=== PATIENT | female | born 1965 | race Caucasian/White ===

== ENCOUNTER → 2018-11-27 | Outpatient (CLI) | payer OTHER ==
--- NOTE | 2018-11-27 13:42 | Diagnostic Imaging Report ---
INDICATION: LOCALIZED SWELLING OF LOWER LEGS; BILATERAL LEG PAIN; CHECKING FOR LVH COMPARISON: None. FINDINGS: Frontal and lateral views of the chest demonstrate normal heart size and pulmonary vascularity. The lungs are clear. There are no signs of infiltrate, pleural effusions or pneumothoraces. The visualized osseous structures show no acute abnormalities. IMPRESSION: 1. No acute process. No signs of infiltrates, effusions or pneumothoraces. Dictated by: Dictated on workstation # [id number]
== END ==
LOC: RAD FS 12:01
PROVIDERS: ATTEND Nurse Practitioner Family
DX: R22.43 Localized swelling, mass and lump, lower limb, bilateral (principal)
CPT/HCPCS: 71046

== ENCOUNTER → 2019-02-25 | Outpatient (CLI) | payer OTHER ==
[~2019-02-25] VITALS: Ht 165.1 cm; Wt 68.2 kg
[~2019-02-25] MED LIST: LIDOCAINE 1% INJ 20 ML 20 ML VIAL INJ ONE
--- NOTE | 2019-02-25 10:07 | Diagnostic Imaging Report ---
INDICATION: Left thyroid nodules. Patient presents for ultrasound-guided fine-needle aspiration. Patient was brought to the procedure room and placed on the table in the supine position. Ultrasound imaging of the left neck was performed to evaluate appropriate entry site. Left neck was then prepped and draped in usual sterile fashion. Small amount of 1% lidocaine was utilized for local anesthesia. A total of 4 passes were made into the peripherally calcified hypoechoic nodule in upper pole left lobe of the thyroid utilizing 25-gauge needles and fine-needle aspiration technique. Hemostasis was obtained using manual compression. Patient tolerated procedure well and left department in stable condition. IMPRESSION: Successful ultrasound-guided fine-needle aspiration of the hypoechoic partially calcified nodule in the left lobe of the thyroid, as described. Pathology results are currently pending. Dictated by: Dictated on workstation # [id number]
== END ==
LOC: RAD 08:02
PROVIDERS: ATTEND Nurse Practitioner Family
DX: E04.1 Nontoxic single thyroid nodule (principal)

== ENCOUNTER 2021-02-12 17:59 | Observation (INO) | payer OTHER ==
[~2021-02-12] VITALS: Ht 165 cm; Wt 59.7 kg
[2021-02-12 18:51] LABS: HEMATOCRIT 30 % (35-52); HEMOGLOBIN 9.7 g/dL (11.5-16.0); MEAN CORPUSCULAR HEMOGLOBIN 28 pg (25-34); MEAN CORPUSCULAR HGB CONC 33 g/dL (32-36); MEAN CORPUSCULAR VOLUME 86 fL (80-99); WHITE BLOOD COUNT 4.1 10^3/uL (4.3-11.0)
[2021-02-12 18:52] LABS: BASOPHILS % (AUTO) 0 % (0-10); EOSINOPHILS % (AUTO) 1 % (0-10); LYMPHOCYTES # (AUTO) 0.3 X 10^3 (1.0-4.0); LYMPHOCYTES % (AUTO) 7 % (12-44); MEAN PLATELET VOLUME 10.3 fL (9.0-12.2); MONOCYTES # (AUTO) 0.3 X 10^3 (0.0-1.0); MONOCYTES % (AUTO) 6 % (0-12); NEUTROPHILS # (AUTO) 3.5 X 10^3 (1.8-7.8); NEUTROPHILS % (AUTO) 85 % (42-75); PLATELET COUNT 197 10^3/uL (130-400)
[2021-02-12 18:59] LABS: CREATININE SERUM 0.81 MG/DL (0.60-1.30); POTASSIUM 4.7 MMOL/L (3.6-5.0)
[2021-02-12 19:01] LABS: ALBUMIN 3.3 GM/DL (3.2-4.5); BILIRUBIN,TOTAL 0.4 MG/DL (0.1-1.0); TOTAL PROTEIN 6.7 GM/DL (6.4-8.2)
[2021-02-12 19:06] LABS: BILIRUBIN,URINE NEGATIVE (NEGATIVE); CLARITY,URINE SL CLOUDY; COLOR,URINE YELLOW; GLUCOSE, URINE (UA) 3+ (NEGATIVE); KETONES,URINE NEGATIVE (NEGATIVE); LEUKOCYTE ESTERASE ,URINE NEGATIVE (NEGATIVE); NITRITE,URINE POSITIVE (NEGATIVE); PROTEIN,URINE NEGATIVE (NEGATIVE)
[2021-02-12] MEDS ORDERED: inSUlin (REGULAR) HUMAN 1 UNIT/0.01 ML (CHARGE PER UNIT) SC STA (19:09)
[2021-02-12] MEDS ORDERED: NS IV 1000 ML 1,000 ML IV STA (19:09)
[2021-02-12 19:11] LABS: BACTERIA,URINE LARGE /HPF; SQUAMOUS EPITHELIAL CELL,UR 0-2 /HPF
--- NOTE | 2021-02-12 19:11 | ED General ---
General Chief Complaint: General Problems/Pain Stated Complaint: BLOOD SUGAR HIGH,WEAKNESS Nursing Triage Note: Patient has presented to ER with cc of 3 weeks of ecoli in her urine. She complains of weakness, nausea, decreased appetite, she has had some vomiting, weight loss over the last 3 weeks. Patient was seen in the clinic today and sent to ER for evaluation. Source of Information: Patient, Family History of Present Illness Date Seen by Provider: Feb 12, 2021 Time Seen by Provider: 18:03 Initial Comments 55-year-old female presenting from the clinic where she was seen for over 3 weeks of urinary tract infection. She complains of increased weakness with nausea, vomiting, decreased appetite, continued weight loss over the last several months. She was seen in the clinic today in the center to the emergency department when it was found that she had an elevated glucose over 400. She has no fever but reports feeling chills. She has been on at least 3 different antibiotics in the last few weeks for a urinary tract infection. These include Cipro, cephalexin and then most recently Macrobid for the last week. She has had a increase in her dry mouth and thirst with the elevated sugar. She denies having any diarrhea. Timing/Duration: Getting Worse (Feels like she has been worsening over the last several weeks) Severity: Moderate Associated Systoms: No Chest Pain, No Cough, No Diaphoresis; Fever/Chills (No fever but subjective chills); No Headaches; Loss of Appetite, Malaise, Nausea/Vomiting; No Rash, No Seizure, No Shortness of Air, No Syncope; Weakness (Generalized) Allergies and Home Medications Allergies Coded Allergies: No Known Drug Allergies (Unverified , 02/25/19) Patient Home Medication List Home Medication List Reviewed: Yes Review of Systems Review of Systems Constitutional: chills, dizziness (With standing at times); No fever EENTM: no symptoms reported Respiratory: no symptoms reported Cardiovascular: no symptoms reported Gastrointestinal: No diarrhea; nausea, vomiting Genitourinary: dysuria, frequency Musculoskeletal: back pain (Chronic low back pain) Skin: No rash Psychiatric/Neurological: Denies Numbness, Denies Paresthesia; Weakness (Generalized) Past Btturyf-Xvggdu-Qwgixi Hx Patient Social History Tobacco Use?: No Use of E-Cig and/or Vaping dev: No Substance use?: No Alcohol Use?: No Pt feels they are or have been: No Past Medical History Surgery/Hospitalization HX: Diabetes, recurrent E. coli urine infections Physical Exam Vital Signs Vital Signs - First Documented 02/12/21 18:29 Temp 36.9 Pulse 123 Resp 16 B/P (MAP) 136/73 (94) Pulse Ox 98 O2 Delivery Room Air Capillary Refill : Height, Weight, BMI Height: '" Weight: lbs. oz. kg; 23.00 BMI Method: General Appearance: Chronically ill, Mild Distress HEENT: No Moist Mucous Membranes (Slightly dry mucous membranes) Neck: Full Range of Motion, Normal Inspection, Non Tender, Supple Respiratory: Chest Non Tender, Lungs Clear, Normal Breath Sounds, No Accessory Muscle Use, No Respiratory Distress Cardiovascular: Normal Peripheral Pulses, Tachycardia Gastrointestinal: Normal Bowel Sounds, No Pulsatile Mass, Non Tender, Soft Rectal: Deferred Back: No CVA Tenderness Extremity: Normal Capillary Refill, Normal Inspection, No Pedal Edema Neurologic/Psychiatric: Alert, Oriented x3, cosmetics supervisor II-XII Norm as Tested Skin: Normal Color, Warm/Dry Focused Exam Sepsis Stage: Sepsis Possible Source: Genitouriary Lactate Level 02/12/21 18:21: Lactic Acid Level 2.21*H 02/12/21 20:30: Lactic Acid Level 1.92 Time of Focused Exam: 20:48 Respiratory: Chest Non Tender, Lungs Clear, Normal Breath Sounds, No Accessory Muscle Use, No Respiratory Distress Cardiovascular: Normal Peripheral Pulses, Tachycardia Capillary Refill: Less Than 3 Seconds Peripheral Pulses: 2+ Radial Pulses (R), 2+ Radial Pulses (L) Skin: normal color, warm/dry Lactic Acid Level Laboratory Tests Test 02/12/21 18:21 02/12/21 20:30 Lactic Acid Level 2.21 MMOL/L (0.50-2.00) *H 1.92 MMOL/L (0.50-2.00) Within 3hrs of presentation: Admin fluids, Admin ABX, Focus exam, Lactate level Progress/Results/Core Measures Suspected Sepsis SIRS Temperature: Pulse: 123 Respiratory Rate: 16 Laboratory Tests 02/12/21 18:21: White Blood Count 4.1L Blood Pressure 136 /73 Mean: 94 02/12/21 18:21: Lactic Acid Level 2.21*H 02/12/21 20:30: Lactic Acid Level 1.92 Laboratory Tests 12/13/21 18:21: Creatinine 0.81, Platelet Count 197, Total Bilirubin 0.4 Results/Orders Lab Results Laboratory Tests Test 02/12/21 18:21 02/12/21 18:45 02/12/21 18:50 02/12/21 20:30 Range/Units White Blood Count 4.1 L 4.3-11.0 10^3/uL Red Blood Count 3.45 L 3.80-5.11 10^6/uL Hemoglobin 9.7 L 11.5-16.0 g/dL Hematocrit 30 L 35-52 % Mean Corpuscular Volume 86 80-99 fL Mean Corpuscular Hemoglobin 28 25-34 pg Mean Corpuscular Hemoglobin Concent 33 32-36 g/dL Red Cell Distribution Width 15.7 H 10.0-14.5 % Platelet Count 197 130-400 10^3/uL Mean Platelet Volume 10.3 9.0-12.2 fL Immature Granulocyte % (Auto) 1 % Neutrophils (%) (Auto) 85 H 42-75 % Lymphocytes (%) (Auto) 7 L 12-44 % Monocytes (%) (Auto) 6 0-12 % Eosinophils (%) (Auto) 1 0-10 % Basophils (%) (Auto) 0 0-10 % Neutrophils # (Auto) 3.5 1.8-7.8 X 10^3 Lymphocytes # (Auto) 0.3 L 1.0-4.0 X 10^3 Monocytes # (Auto) 0.3 0.0-1.0 X 10^3 Eosinophils # (Auto) 0.0 0.0-0.3 10^3/uL Basophils # (Auto) 0.0 0.0-0.1 10^3/uL Immature Granulocyte # (Auto) 0.0 0.0-0.1 10^3/uL Neutrophils % (Manual) 78 % Lymphocytes % (Manual) 6 % Monocytes % (Manual) 11 % Eosinophils % (Manual) 0 % Basophils % (Manual) 0 % Band Neutrophils 5 % Anisocytosis SLIGHT Elliptocytes SLIGHT Sodium Level 127 L 135-145 MMOL/L Potassium Level 4.7 3.6-5.0 MMOL/L Chloride Level 91 L 98-107 MMOL/L Carbon Dioxide Level 24 21-32 MMOL/L Anion Gap 12 5-14 MMOL/L Blood Urea Nitrogen 14 7-18 MG/DL Creatinine 0.81 0.60-1.30 MG/DL Estimat Glomerular Filtration Rate 73 BUN/Creatinine Ratio 17 Glucose Level 475 *H 70-105 MG/DL Lactic Acid Level 2.21 *H 1.92 0.50-2.00 MMOL/L Calcium Level 9.0 8.5-10.1 MG/DL Corrected Calcium 9.6 8.5-10.1 MG/DL Total Bilirubin 0.4 0.1-1.0 MG/DL Aspartate Amino Transf (AST/SGOT) 13 5-34 U/L Alanine Aminotransferase (ALT/SGPT) 6 0-55 U/L Alkaline Phosphatase 66 40-136 U/L Total Protein 6.7 6.4-8.2 GM/DL Albumin 3.3 3.2-4.5 GM/DL Lipase 36 8-78 U/L Beta-Hydroxybutyrate (Chem panel) 0.18 0.00-0.27 MMOL/L Glucometer 422 *H 70-110 MG/DL Urine Color YELLOW Urine Clarity SL CLOUDY Urine pH 6.0 5-9 Urine Specific [place] <=1.005 1.016-1.022 Urine Protein NEGATIVE NEGATIVE Urine Glucose (UA) 3+ H NEGATIVE Urine Ketones NEGATIVE NEGATIVE Urine Nitrite POSITIVE H NEGATIVE Urine Bilirubin NEGATIVE NEGATIVE Urine Urobilinogen 0.2 < = 1.0 MG/DL Urine Leukocyte Esterase NEGATIVE NEGATIVE Urine RBC (Auto) NEGATIVE NEGATIVE Urine RBC NONE /HPF Urine WBC 2-5 /HPF Urine Squamous Epithelial Cells 0-2 /HPF Urine Crystals NONE /LPF Urine Bacteria LARGE H /HPF Urine Casts NONE /LPF Urine Mucus NEGATIVE /LPF Urine Culture Indicated YES Test 02/12/21 20:46 02/12/21 22:45 Range/Units Glucometer 315 H 177 H 70-110 MG/DL My Orders Orders - REGINA VALDEZ MD Comprehensive Metabolic Panel (02/12/21 18:34) Lipase (02/12/21 18:34) Ua Culture If Indicated (02/12/21 18:34) Ed Iv/Invasive Line Start (02/12/21 18:34) Cbc With Automated Diff (02/12/21 18:34) Beta Hydroxybutyrate (02/12/21 18:34) Accucheck Stat ONCE (02/12/21 18:34) Manual Differential (02/12/21 18:21) Ns Iv 1000 Ml (Sodium Chloride 0.9%) (02/12/21 19:09) Insulin (Regular) Human (Novolin R (Per (02/12/21 19:09) Urine Culture (02/12/21 18:50) Lactic Acid Analyzer (02/12/21 19:31) Ceftriaxone (Rocephin) (02/12/21 21:45) Ns Iv 1000 Ml (Sodium Chloride 0.9%) (02/12/21 21:45) Medications Given in ED Current Medications Medications Dose Ordered Sig/Froilan Route Start Time Stop Time Status Last Admin Dose Admin Ceftriaxone Sodium 1000 mg/ Sterile Water 10 ml @ 60 mls/hr ONCE ONCE IV 02/12/21 21:45 02/12/21 21:54 DC 02/12/21 22:29 60 MLS/HR Vital Signs/I&O 02/12/21 18:29 Temp 36.9 Pulse 123 Resp 16 B/P (MAP) 136/73 (94) Pulse Ox 98 O2 Delivery Room Air Capillary Refill : Blood Pressure Mean: 94 Point of Care Testing Finger Stick Blood Glucose: 422 Blood Glucose Action Taken: RN notified Progress Note #1: Progress Note Accu-Chek showed her sugar was 422. She had tachycardia so obtain labs includ ing lactic acid and basic blood work. Urinalysis was also obtained. Give IV fluids for hydration. Differential diagnosis includes DKA, sepsis, pyelonephritis, Progress Note #2: Progress Note Her labs showed the glucose was 475. Her urine still showed signs of UTI with nitrites and bacteria. She had normal white blood cell count of 4.1 but she had elevated lactic acid of 2.2. Continue with IV fluids and recheck the glucose after she was given 10 units of regular insulin Progress Note #3: Progress Note The sugar did come down to 315 with treatment. Her lactic acid also improved down to 1.92 with fluids. Since she continues to show signs of infection in her urine despite several oral antibiotics will discuss the on-call provider about admission for IV antibiotics. Her beta hydroxybutyrate was negative for DKA findings. Discussed with Dr. Puri for the [facility] clinic about admission. She agreed to have an observation stay with the patient having recurrent urinary tract infection and having elevated lactic acid. Especially since she was having nausea with vomiting and continued elevated heart rate will continue with IV fluid hydration in addition to the antibiotics. We will start with Rocephin based off of the sepsis order set. Departure Communication (Admissions) Time/Spoke to Admitting Phy: 21:07 d/w Dr. Puri for [facility] and she accepted pt for observation admit to be treated for continued UTI with sepsis and elevated heart rate. Try IV Rocephin and IVF for hydration. Impression Primary Impression: Cystitis without hematuria Additional Impressions: Sepsis Qualified Codes: A41.51 - Sepsis due to Escherichia coli [e. coli] Tachycardia Hyperglycemia due to diabetes mellitus Disposition: 30 STILL A PATIENT Condition: Stable Admissions Decision to Admit Reason: Admit from ER (General) Decision to Admit/Date: Feb 12, 2021 Time/Decision to Admit Time: 21:07 Departure-Patient Inst. Referrals: ALEC MITCHELL APRN (PCP/Family) Primary Care Physician REGINA VALDEZ MD Feb 12, 2021 19:11
[2021-02-12 19:44] LABS: ANISOCYTOSIS SLIGHT; BAND NEUTROPHILS 5 %; BASOPHILS % (MANUAL) 0 %; ELLIPT/OVALOCYTES SLIGHT; EOSINOPHILS % (MANUAL) 0 %; LYMPHOCYTES % (MANUAL) 6 %; MONOCYTES % (MANUAL) 11 %; NEUTROPHILS % (MANUAL) 78 %
[2021-02-12] MEDS ORDERED: NS IV 1000 ML 1,000 ML IV SCH (21:45)
[2021-02-12] MEDS ORDERED: cefTRIAXone 1,000 MG in WATER (STERILE) FOR INJECTION 10 ML IV ONE (21:45)
[2021-02-13 01:56] VITALS: BP 128/63
[2021-02-13] MEDS ORDERED: ONDANSETRON 4 MG/2 ML (SDV) Z0FRAN IV PRN (02:30)
[2021-02-13] MEDS: LACTATED RINGERS 1,000 ML IV SCH ×4 (04:26→22:15)
[2021-02-13] MEDS: inSUlin ASPART (NovoLOG) 1 UNIT/0.01 ML (CHARGE PER UNIT) SC SCH ×4 (05:15→20:17)
[2021-02-13 05:31] VITALS: BP 134/69
[2021-02-13 06:21] LABS: BASOPHILS % (AUTO) 0 % (0-10); EOSINOPHILS % (AUTO) 0 % (0-10); HEMATOCRIT 28 % (35-52); HEMOGLOBIN 8.9 g/dL (11.5-16.0); LYMPHOCYTES # (AUTO) 0.3 10^3/uL (1.0-4.0); LYMPHOCYTES % (AUTO) 11 % (12-44); MEAN CORPUSCULAR HEMOGLOBIN 28 pg (25-34); MEAN CORPUSCULAR HGB CONC 32 g/dL (32-36); MEAN CORPUSCULAR VOLUME 87 fL (80-99); MEAN PLATELET VOLUME 10.3 fL (9.0-12.2); MONOCYTES # (AUTO) 0.1 10^3/uL (0.0-1.0); MONOCYTES % (AUTO) 5 % (0-12); NEUTROPHILS # (AUTO) 2.6 10^3/uL (1.8-7.8); NEUTROPHILS % (AUTO) 84 % (42-75); PLATELET COUNT 168 10^3/uL (130-400); WHITE BLOOD COUNT 3.1 10^3/uL (4.3-11.0)
[2021-02-13 06:35] LABS: CALCIUM 8.4 MG/DL (8.5-10.1)
[2021-02-13 06:39] LABS: CREATININE SERUM 0.81 MG/DL (0.60-1.30)
[2021-02-13 08:06] VITALS: BP 130/67
[2021-02-13] MEDS ORDERED: METF-865 PO (08:41)
[2021-02-13] MEDS ORDERED: INSU200I4 SC (08:41)
[2021-02-13] MEDS ORDERED: OMEP20CA18 PO (08:41)
[2021-02-13] MEDS ORDERED: LEVO100T PO (08:41)
[2021-02-13] MEDS ORDERED: FOLI1TAB33 PO (08:41)
[2021-02-13] MEDS ORDERED: METH2.5T PO (08:41)
[2021-02-13] MEDS ORDERED: SEMA0.25 IJ (08:41)
[2021-02-13] MEDS ORDERED: ANTI1CAP5 PO (08:41)
[2021-02-13] MEDS ORDERED: FOLI1TAB6 PO (08:41)
[2021-02-13] MEDS ORDERED: NON-FORMULARY MEDICATION 1 EA EA (Semaglutide (Ozempic) 0.5 MG) IJ SCH (11:00)
[2021-02-13 11:12] VITALS: BP 124/70
[2021-02-13] MEDS ORDERED: PANTOPRAZOLE 20 MG TABLET (PROTONIX) PO PRN (11:30)
--- NOTE | 2021-02-13 11:42 | History & Physical ---
HPI History of Present Illness: 55 yo female sent to ER from clinic due to nausea/vomiting and high blood sugar. She had been undergoing treatment for a UTI since the end of January. She gets very fatigue when she gets a UTI, went in to urgent care around and she got an antibiotic (maybe Keflex) which didn't work at all and she kept ge tting worse. Friday she got a call from the pharmacy that she had a prescription, and she was surprised because she hadn't heard from the office. She went to the pharmacy and got it (maybe cipro), but didn't hear from clinic until Friday. She did feel a little better, but then was told it was resistant and given another. She most recently finished a course of macrobid, but has not been able to get her strength up and has continued to have poor intake and nausea. Thinks she may have yeast infection now. Date seen by provider: Feb 13, 2021 Time Seen by Provider: 11:40 Attending Physician Griselda Puri MD PCP Ursula Perkins Aprn Consult Date of Admission Feb 13, 2021 at 01:50 Home Medications Home Medications Reviewed patient Home Medication Reconciliation performed by pharmacy medication reconciliations medtronics technician and/or nursing. Patients Allergies have been reviewed. Allergies Coded Allergies: amoxicillin (Verified Allergy, Unknown, Rash, 02/13/21) EGU-Zidspv-Gxqlno Hx Patient Social History Smoking Status: Never a Smoker 2nd Hand Smoke Exposure: No Alcohol Use?: No Have you traveled recently?: No Immunizations Up To Date Influenza Vaccine Up-to-Date: No; Not Current First/Initial COVID19 Vaccinat: July 2020 Second COVID19 Vaccination Ziyad: August 2020 COVID19 Vaccine Terry Cloth Cutter Hand: Moderna Past Medical History PMHx: Diabetes Rheumatoid arthritis Hypothyroidism SurgHx: Partial thyroidectomy- benign Hysterectomy Cholecystectomy Tubal ligation Family Medical History Significant Family History: Cancer Review of Systems ([facility]) Constitutional: fever EENTM: throat pain; No nose congestion Respiratory: cough (occasional); No short of breath Cardiovascular: No chest pain Gastrointestinal: No abdominal pain; constipation (chronic); No diarrhea; loss of appetite Genitourinary: No dysuria Musculoskeletal: joint pain (baseline from arthritis) Skin: No rash Physical Exam-([facility]) Physical Exam Vital Signs VS - Last 72 Hours, by Label 02/12/21 02/12/21 02/12/21 02/12/21 18:29 21:30 22:30 23:30 Temp 36.9 Pulse 123 119 110 114 Resp 16 14 14 14 B/P (MAP) 136/73 (94) 132/76 127/56 126/65 Pulse Ox 98 99 100 100 O2 Delivery Room Air 02/13/21 02/13/21 02/13/21 02/13/21 01:00 01:50 01:56 05:31 Temp 37.2 37.2 Pulse 105 121 97 Resp 14 20 20 B/P (MAP) 126/59 128/63 (84) 134/69 (90) Pulse Ox 98 95 95 98 O2 Delivery Room Air Room Air Room Air 02/13/21 02/13/21 02/13/21 02/13/21 08:00 08:06 11:12 16:00 Temp 37.0 37.0 37.4 Pulse 99 97 105 Resp 20 20 20 B/P (MAP) 130/67 (88) 124/70 (88) 141/72 (95) Pulse Ox 98 97 99 O2 Delivery Room Air Room Air Room Air Room Air 02/13/21 02/13/21 19:00 20:00 Temp 37.2 Pulse 103 100 Resp 20 B/P (MAP) 129/74 (92) Pulse Ox 97 O2 Delivery Room Air Capillary Refill : Less Than 3 Seconds General Appearance: WD/WN, no apparent distress Respiratory: lungs clear, normal breath sounds Cardiovascular: regular rate, rhythm, systolic murmur Gastrointestinal: normal bowel sounds, non tender, soft Extremities: no pedal edema Neurologic/Psychiatric: alert, normal mood/affect Skin: normal color, warm/dry Assessment/Plan Assessment/Plan Admission Status: Observation (1) Diabetes mellitus, type 2 Status: Chronic Assessment & Plan: Resume home medications, blood sugar improved today after fluid and insulin in ER. Qualifiers: (2) Rheumatoid arthritis Status: Chronic Assessment & Plan: Continue home methotrexate (3) Hypothyroidism Status: Chronic Assessment & Plan: Continue home levothyroxine. (4) Heart murmur Status: Acute Assessment & Plan: Reports no known history, given her tachycardia, new murmur, fatigue and weight loss will check echo. (5) Sepsis Status: Acute Assessment & Plan: Tachycardic and with leukopenia on admit, lactic acid mildly elevated- resolved on recheck. Qualifiers: Qualified Codes: A41.51 - Sepsis due to Escherichia coli [e. coli] (6) Cystitis without hematuria Status: Acute Assessment & Plan: E coli in urine culture, reviewed outpatient culture and E coli was sensitive to ceftriaxone, continue for now. (7) Hyperglycemia due to diabetes mellitus Status: Acute (8) DVT prophylaxis Status: Acute Assessment & Plan: Enoxaparin GRISELDA PURI MD Feb 13, 2021 11:42
[2021-02-13 16:00] VITALS: BP 141/72
[2021-02-13 20:00] VITALS: BP 129/74
[2021-02-13] MEDS ORDERED: ENOXAPARIN 40 MG/0.4 ML (LOVENOX) SYR SQ SCH (21:00)
[2021-02-13] MEDS ORDERED: cefTRIAXone 1 GM/50 ML (PRE-MIX) IV SCH (21:00)
[2021-02-14] VITALS: BP 138/73
[2021-02-14 03:30] VITALS: BP 130/68
[2021-02-14] MEDS: inSUlin ASPART (NovoLOG) 1 UNIT/0.01 ML (CHARGE PER UNIT) SC SCH ×2 (06:00→11:00)
[2021-02-14 06:29] LABS: BASOPHILS % (AUTO) 0 % (0-10); EOSINOPHILS % (AUTO) 0 % (0-10); LYMPHOCYTES # (AUTO) 0.3 10^3/uL (1.0-4.0); LYMPHOCYTES % (AUTO) 11 % (12-44)
[2021-02-14 06:31] LABS: HEMATOCRIT 27 % (35-52); HEMOGLOBIN 8.6 g/dL (11.5-16.0); MEAN CORPUSCULAR HEMOGLOBIN 28 pg (25-34); MEAN CORPUSCULAR HGB CONC 32 g/dL (32-36); MEAN CORPUSCULAR VOLUME 88 fL (80-99); MONOCYTES # (AUTO) 0.2 10^3/uL (0.0-1.0); MONOCYTES % (AUTO) 6 % (0-12); NEUTROPHILS # (AUTO) 2.6 10^3/uL (1.8-7.8); NEUTROPHILS % (AUTO) 82 % (42-75); PLATELET COUNT 149 10^3/uL (130-400); WHITE BLOOD COUNT 3.1 10^3/uL (4.3-11.0)
[2021-02-14] MEDS: LACTATED RINGERS 1,000 ML IV SCH ×2 (06:34)
[2021-02-14 06:45] LABS: CALCIUM 8.3 MG/DL (8.5-10.1); CREATININE SERUM 0.75 MG/DL (0.60-1.30); POTASSIUM 3.5 MMOL/L (3.6-5.0)
[2021-02-14 08:00] VITALS: BP 147/75
[2021-02-14] MEDS ORDERED: LEVOTHYROXINE 100 MCG (LEVOTHROID) TAB PO SCH (09:00)
[2021-02-14] MEDS ORDERED: FOLIC ACID 1 MG TAB PO SCH (09:00)
[2021-02-14] MEDS ORDERED: metFORMIN XR 500 MG (GLUCOPHAGE XR) TAB PO SCH (09:00)
[2021-02-14] MEDS ORDERED: fluCOnazole (DIFLUCAN) 100 MG TAB PO NR (10:00)
[2021-02-14] MEDS ORDERED: METHOTREXATE 2.5 MG TAB PO SCH (11:00)
[2021-02-14 12:00] VITALS: BP 147/70
[2021-02-14] MEDS ORDERED: CEFD300C3 PO (12:35)
--- NOTE | 2021-02-14 12:40 | Discharge Summary ---
Discharge Summary Hospital Course Problems/Diagnosis: (1) Diabetes mellitus, type 2 Status: Chronic Assessment & Plan: Resume home medications, blood sugar improved today after fluid and insulin in ER. In fact had low blood sugar after admission even with half dose of home insulin. She was eating better on day of d/c and had normal blood sugar at breakfast and lunch that day. Qualifiers: (2) Rheumatoid arthritis Status: Chronic Assessment & Plan: Continue home methotrexate (3) Hypothyroidism Status: Chronic Assessment & Plan: Continue home levothyroxine. (4) Heart murmur Status: Acute Assessment & Plan: Reports no known history, given her tachycardia, new murmur, fatigue and weight loss, obtained echo which showed grade 1 diastolic dysfunction, mild aortic regurg, EF 50-55%. (5) Sepsis Status: Acute Assessment & Plan: Tachycardic and with leukopenia on admit, lactic acid mildly elevated- resolved on recheck. Qualifiers: Qualified Codes: A41.51 - Sepsis due to Escherichia coli [e. coli] (6) Cystitis without hematuria Status: Acute Assessment & Plan: E coli sensitive to ceftriaxone, discharged to complete course of cefdinir. (7) Hyperglycemia due to diabetes mellitus Status: Resolved Resolution Date/Time: 02/14/21 @ 12:38 Hospital Course Date of Admission: Feb 13, 2021 at 01:50 Admission Diagnosis : Family Physician/Provider: Ursula Perkins Aprn Date of Discharge: 02/14/21 Discharge Diagnosis: See problem list Hospital Course: See problem list. May need further work-up for poor appetite/weight loss outpatient if not resolved after UTI treatment. Labs and Pending Lab Test: Laboratory Tests 02/13/21 17:07: Glucometer 119H 02/13/21 20:13: Glucometer 130H 02/14/21 05:44: Glucometer 36*L 02/14/21 05:45: Glucometer 39*L 02/14/21 06:17: Glucometer 53*L 02/14/21 06:18: White Blood Count 3.1L, Red Blood Count 3.06L, Hemoglobin 8.6L, Hematocrit 27L, Mean Corpuscular Volume 88, Mean Corpuscular Hemoglobin 28, Mean Corpuscular Hemoglobin Concent 32, Red Cell Distribution Width 15.9H, Platelet Count 149, Mean Platelet Volume 10.0, Immature Granulocyte % (Auto) 0, Neutrophils (%) (Auto) 82H, Lymphocytes (%) (Auto) 11L, Monocytes (%) (Auto) 6, Eosinophils (%) (Auto) 0, Basophils (%) (Auto) 0, Neutrophils # (Auto) 2.6, Lymphocytes # (Auto) 0.3L, Monocytes # (Auto) 0.2, Eosinophils # (Auto) 0.0, Basophils # (Auto) 0.0, Immature Granulocyte # (Auto) 0.0, Percent Immature Platelet Fraction 2.1, Sodium Level 136, Potassium Level 3.5L, Chloride Level 103, Carbon Dioxide Level 23, Anion Gap 10, Blood Urea Nitrogen 6L, Creatinine 0.75, Estimat Glomerular Filtration Rate 80, BUN/Creatinine Ratio 8, Glucose Level 56*L, Calcium Level 8.3L 02/14/21 06:51: Glucometer 79 02/14/21 12:00: Glucometer 93 Microbiology 02/12/21 Urine Culture - Final, Complete Escherichia coli Home Meds Active Cefdinir 300 Mg Capsule 300 Mg PO BID Reported Centrum Complete Multivit Tab (Multivitamin/Iron/Folic Acid) 1 Each Tablet 1 Each PO DAILY Eye Health Adult 50+ Softgel (Antiox #11/Om3/Dha/Epa/Lut/Esther) 1 Each Capsule 1 Each PO DAILY Metformin HCl ER (Metformin HCl) 500 Mg Tab.er.24h 1,000 Mg PO DAILY TAKES 2 (500MG) TABS Methotrexate (Methotrexate Sodium) 2.5 Mg Tablet 20 Mg PO WED TAKES 8 (2.5MG) TABS Folic Acid 1 Mg Tablet 1 Mg PO DAILY Ozempic (Semaglutide) 0.25 Mg/0.2 Ml Pen.injctr 0.5 Mg IJ FRI Synthroid (Levothyroxine Sodium) 100 Mcg Tablet 100 Mcg PO DAILY Tresiba Flextouch U-200 (Insulin Degludec) 200 Unit/1 Ml Insuln.pen 26 Units SC HS Omeprazole 20 Mg Capsule.dr 20 Mg PO DAILY PRN Assessment/Pt DC Instructions Follow up with primary provider within a week of discharge. Discharge Diet: ADA Diet Activity as Tolerated: Yes Discharge Physical Examination Allergies: Coded Allergies: amoxicillin (Verified Allergy, Unknown, Rash, 02/13/21) General Appearance: No Apparent Distress, WD/WN Respiratory: Lungs Clear, Normal Breath Sounds Cardiovascular: Regular Rate, Rhythm, Systolic Murmur Gastrointestinal: Normal Bowel Sounds, Non Tender, Soft Skin: Normal Color Neurologic/Psychiatric: Alert, Normal Mood/Affect GRISELDA CARDENAS MD Feb 14, 2021 12:40
[2021-02-14] MEDS ORDERED: ENOXAPARIN 40 MG/0.4 ML (LOVENOX) SYR SQ SCH (21:00)
== END 2021-02-14 12:35 | disposition home or self-care (01) ==
LOC: EDUNIT# 17:59 → ER FS 18:00 → 4TH 18:01 → UNDOADMOB 02-13 01:50 → 4TH 02-13 01:50 → UNDODISOB 02-14 14:40
PROVIDERS: ADMIT Family Medicine; ATTEND Family Medicine
DX: E11.65 Type 2 diabetes mellitus with hyperglycemia (principal); M06.9 Rheumatoid arthritis, unspecified; E03.9 Hypothyroidism, unspecified; A41.9 Sepsis, unspecified organism; R01.1 Cardiac murmur, unspecified; N30.90 Cystitis, unspecified without hematuria; I49.1 Atrial premature depolarization; I44.4 Left anterior fascicular block; R00.0 Tachycardia, unspecified; I35.1 Nonrheumatic aortic (valve) insufficiency; Z79.890 Hormone replacement therapy; Z79.2 Long term (current) use of antibiotics; Z79.84 Long term (current) use of oral hypoglycemic drugs
CPT/HCPCS: 36415; 80048; 80053; 81000; 82010; 82947; 83605; 83690; 85007; 85025; 85027; 87088; 87186; 93005; 93306; G0378

== ENCOUNTER → 2021-03-06 | Outpatient (CLI) | payer OTHER ==
[~2021-03-06] MED LIST changes: +ANTI1CAP5 PO; +CEFD300C3 PO; +FOLI1TAB33 PO; +FOLI1TAB6 PO; +INSU200I4 SC; +LEVO100T PO; -LIDOCAINE 1% INJ 20 ML 20 ML VIAL INJ ONE; +METF-865 PO; +METH2.5T PO; +OMEP20CA18 PO; +SEMA0.25 IJ
[2021-03-06 13:57] LABS: HEMOGLOBIN 7.4 g/dL (11.5-16.0); MEAN CORPUSCULAR HEMOGLOBIN 27 pg (25-34); WHITE BLOOD COUNT 3.4 10^3/uL (4.3-11.0)
[2021-03-06 13:58] LABS: BASOPHILS % (AUTO) 0 % (0-10); EOSINOPHILS % (AUTO) 0 % (0-10); HEMATOCRIT 24 % (35-52); LYMPHOCYTES # (AUTO) 0.5 X 10^3 (1.0-4.0); LYMPHOCYTES % (AUTO) 15 % (12-44); MEAN CORPUSCULAR HGB CONC 31 g/dL (32-36); MEAN CORPUSCULAR VOLUME 87 fL (80-99); MEAN PLATELET VOLUME 10.5 fL (9.0-12.2); MONOCYTES # (AUTO) 0.2 X 10^3 (0.0-1.0); MONOCYTES % (AUTO) 5 % (0-12); NEUTROPHILS # (AUTO) 2.7 X 10^3 (1.8-7.8); NEUTROPHILS % (AUTO) 78 % (42-75); PLATELET COUNT 378 10^3/uL (130-400)
[2021-03-06 14:26] LABS: ALBUMIN 3.5 GM/DL (3.2-4.5); BILIRUBIN,TOTAL 0.6 MG/DL (0.1-1.0); CALCIUM 8.7 MG/DL (8.5-10.1); CREATININE SERUM 0.86 MG/DL (0.60-1.30); TOTAL PROTEIN 7.5 GM/DL (6.4-8.2)
== END ==
LOC: LAB FS 13:28
PROVIDERS: ATTEND Nurse Practitioner Family
DX: R53.1 Weakness (principal)
CPT/HCPCS: 36415; 80053; 85025

== ENCOUNTER 2021-03-28 03:20 | Emergency (ER) | payer OTHER ==
[~2021-03-28] VITALS: Ht 162 cm; Wt 56.0 kg
--- NOTE | 2021-03-28 03:46 | ED General ---
General Chief Complaint: Glucose Problems Stated Complaint: LOW BLOOD SUGAR Nursing Triage Note: EMS was called to an unresponsive pt and pt glucose was 41. EMS administered 1 amp of D50. Pt reports she was prepping for a colonoscopy and is an insulin dependent diabetic and her glucose monitor was not working. Pt denies any other symptoms now. Glucose in ED of 122. Source of Information: Caregiver Exam Limitations: No Limitations History of Present Illness Date Seen by Provider: Mar 28, 2021 Time Seen by Provider: 03:30 Initial Comments Patient is a 55-year-old type II diabetic who presents with generalized weakness and altered mental status during sleep. Patient's spouse contacted 911 patient was found to have a blood sugar of 41. She was given an amp of D50 with recovery. Patient reports that she has been prepping for a colonoscopy and held her insulin prior to the procedure tomorrow but her glucometer has not been working. Patient denies any symptoms at this current time but is unsure what she may eat or drink due to her impending procedure. Timing/Duration: 1-3 Hours Severity: Mild Modifying Factors: improves with Other Associated Systoms: Other Allergies and Home Medications Allergies Coded Allergies: amoxicillin (Verified Allergy, Unknown, Rash, 02/13/21) Patient Home Medication List Home Medication List Reviewed: Yes Antiox #11/Om3/Dha/Epa/Lut/Esther (Eye Health Adult 50+ Softgel) 1 Each Capsule, 1 EACH PO DAILY, (Reported) Entered as Reported by: ELVER GOMEZ on 02/13/21 0841 Cefdinir (Cefdinir) 300 Mg Capsule, 300 MG PO BID Prescribed by: GRISELDA CARDENAS on 02/14/21 1235 Folic Acid (Folic Acid) 1 Mg Tablet, 1 MG PO DAILY, (Reported) Entered as Reported by: ELVER GOMEZ on 02/13/21 0841 Insulin Degludec (Tresiba Flextouch U-200) 200 Unit/1 Ml Insuln.pen, 26 UNITS SC HS, (Reported) Entered as Reported by: ELVER GOMEZ on 02/13/21 0841 Levothyroxine Sodium (Synthroid) 100 Mcg Tablet, 100 MCG PO DAILY, (Reported) Entered as Reported by: ELVER GOMEZ on 02/13/21 0841 Metformin HCl (Metformin HCl ER) 500 Mg Tab.er.24h, 1,000 MG PO DAILY, (Reported) Entered as Reported by: ELVER GOMEZ on 02/13/21 08 Methotrexate Sodium (Methotrexate) 2.5 Mg Tablet, 20 MG PO WED, (Reported) Entered as Reported by: ELVER GOMEZ on 02/13/21 08 Multivitamin/Iron/Folic Acid (Centrum Complete Multivit Tab) 1 Each Tablet, 1 EACH PO DAILY, (Reported) Entered as Reported by: ELVER GOMEZ on 02/13/21840 Omeprazole (Omeprazole) 20 Mg Capsule.dr, 20 MG PO DAILY PRN for HEARTBURN, (Reported) Entered as Reported by: ELVER GOMEZ on 02/13/21 08 Semaglutide (Ozempic) 0.25 Mg/0.2 Ml Pen.injctr, 0.5 MG IJ FRI, (Reported) Entered as Reported by: ELVER GOMEZ on 02/13/21840 Review of Systems Review of Systems Constitutional: see HPI EENTM: see HPI Respiratory: see HPI Cardiovascular: see HPI Gastrointestinal: see HPI Genitourinary: see HPI Musculoskeletal: see HPI Skin: see HPI Psychiatric/Neurological: See HPI Hematologic/Lymphatic: See HPI Immunological/Allergic: see HPI All Other Systems Reviewed Negative Unless Noted: Yes Past Zbcadoj-Fwxlnf-Fnfpkq Hx Patient Social History Tobacco Use?: Yes Use of E-Cig and/or Vaping dev: No Substance use?: No Alcohol Use?: No Pt feels they are or have been: No Immunizations Up To Date Influenza Vaccine Up-to-Date: No; Not Current First/Initial COVID19 Vaccinat: July 2020 Second COVID19 Vaccination Ziyad: Hope August 2020 Past Medical History Surgery/Hospitalization HX: Diabetes, recurrent E. coli urine infections Surgeries: Yes (partial thyroidectomy) Section, Gallbladder, Hysterectomy, Thyroidectomy, Tubal Ligation Respiratory: No Cardiac: No Neurological: Yes Headaches /Migraines Genitourinary: Yes UTI-Chronic Gastrointestinal: No Musculoskeletal: Yes Rheumatoid Arthritis Endocrine: Yes Diabetes, Insulin dep HEENT: Yes (wears glasses) Cancer: No Psychosocial: No Integumentary: No Adverse Reaction/Blood Tranf: No Family Medical History Cancer Physical Exam Vital Signs Vital Signs - First Documented 03/28/21 03:20 Temp 36.0 Pulse 98 Resp 17 B/P (MAP) 128/72 (90) O2 Delivery Room Air Capillary Refill : Less Than 3 Seconds Height, Weight, BMI Height: '" Weight: lbs. oz. kg; 21.00 BMI Method: General Appearance: No Apparent Distress, WD/WN, Chronically ill Eyes: Bilateral Eye Normal Inspection, Bilateral Eye PERRL, Bilateral Eye EOMI HEENT: PERRL/EOMI Respiratory: Lungs Clear, Normal Breath Sounds Cardiovascular: Regular Rate, Rhythm Gastrointestinal: Non Tender Neurologic/Psychiatric: Alert, Oriented x3, No Motor/Sensory Deficits, Normal Mood/Affect Progress/Results/Core Measures Suspected Sepsis SIRS Temperature: Pulse: 98 Respiratory Rate: 17 Blood Pressure 128 /72 Mean: 90 Results/Orders Lab Results Laboratory Tests Test 03/28/21 03:26 Range/Units Glucometer 122 H 70-110 MG/DL Vital Signs/I&O 03/28/21 03:20 Temp 36.0 Pulse 98 Resp 17 B/P (MAP) 128/72 (90) O2 Delivery Room Air Capillary Refill : Less Than 3 Seconds Blood Pressure Mean: 90 Departure Communication (Admissions) Patient monitored in the emergency department. She is given crackers and is able to maintain a blood sugar greater than 100. She is instructed to check her blood sugar throughout the remaining portion of her colonoscopy prep and to drink carbohydrates and eat crackers as needed to maintain blood sugar greater than 100. All questions answered to the patient's satisfaction prior to her departure Impression Primary Impression: Hypoglycemia Disposition: 01 HOME, SELF-CARE Condition: Stable Departure-Patient Inst. Decision time for Depature: 03:45 Referrals: ALEC MITCHELL APRN (PCP/Family) Primary Care Physician Patient Instructions: Low Blood Sugar, Adult (DC) Add. Discharge Instructions: Please continue to monitor blood sugar every 2 hours while awake throughout colonoscopy preparation. Keep a sugary drink and crackers available to treat blood sugar less than 100. Follow-up with your PCP as needed. All discharge instructions reviewed with patient and/or family. Voiced understanding. CEASAR OJEDA DO Mar 28, 2021 03:46
[2021-03-28 04:15] VITALS: BP 135/53
== END 2021-03-28 04:15 | disposition home or self-care (01) ==
LOC: EDUNIT# 03:20 → ER FS 03:23
DX: E11.649 Type 2 diabetes mellitus with hypoglycemia without coma (principal); E89.0 Postprocedural hypothyroidism; Z79.4 Long term (current) use of insulin; Z79.84 Long term (current) use of oral hypoglycemic drugs; Z79.890 Hormone replacement therapy
CPT/HCPCS: 82947

== ENCOUNTER 2021-05-24 11:30 | Observation (INO) | payer OTHER ==
[~2021-05-24] VITALS: Ht 165.1 cm; Wt 53.1 kg
[2021-05-24] MEDS ORDERED: D5 1/2 NS 1000 ML IV SOLUTION 1,000 ML IV ONE (12:00)
[2021-05-24 13:10] LABS: ALBUMIN 2.3 GM/DL (3.2-4.5); CHLORIDE 98 MMOL/L (98-107); POTASSIUM 4.4 MMOL/L (3.6-5.0); SODIUM 128 MMOL/L (135-145)
[2021-05-24 13:11] LABS: CALCIUM 7.3 MG/DL (8.5-10.1)
[2021-05-24 13:12] LABS: GLUCOSE 211 MG/DL (70-105); TOTAL PROTEIN 5.4 GM/DL (6.4-8.2)
[2021-05-24 13:13] LABS: CARBON DIOXIDE 19 MMOL/L (21-32)
[2021-05-24 13:14] LABS: BILIRUBIN,TOTAL 0.3 MG/DL (0.1-1.0)
[2021-05-24 13:15] LABS: ALKALINE PHOSPHATASE 62 U/L (40-136)
[2021-05-24 13:16] LABS: CREATININE SERUM 0.76 MG/DL (0.60-1.30); GFR ESTIMATED 91
[2021-05-24 13:17] LABS: BUN/CREATININE RATIO 16
[2021-05-24 13:19] LABS: ALANINE AMINOTRANSFERASE < 6 U/L (0-55)
--- NOTE | 2021-05-24 13:23 | ED General ---
General Chief Complaint: Glucose Problems Stated Complaint: WEAK Nursing Triage Note: PT AMB TO [facility] 9 WITH WITH COMPLAINT OF WEAKNESS, RIGHT SIDE PAIN. PT IS CONCERNED SHE HAS A BLADDER INFECTION. STATES TAKES MAINTENANCE DOSE OF MACROBID. (JENAE LEÓN) History of Present Illness Date Seen by Provider: May 24, 2021 Time Seen by Provider: 11:45 Initial Comments 55-year-old female referred to the emergency department by Dr. Brittany Greene at [facility] for approximate 20 pound weight loss, dry skin, treatment for RA with methotrexate, rash and pancytopenia. Patient was on methotrexate 15 mg once weekly for several years, beginning in the spring 2020, she started taking methotrexate 20 mg every Friday. She took her dose yesterday. Symptoms have been present and she has been seen by multiple providers over the last 3 months. She has had a CT of her abdomen recently at [facility] that did not show any abnormalities, she had a colonoscopy and EGD with biopsy by Dr. Jenkins, negative mammogram. She has been treated for the last several years by Dr. 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 This was an increase that occurred during the spring 2020, as her RA symptoms were not well managed and she was increased from 6 tablets weekly to 8. Patient reports extreme weakness and generalized fatigue. Timing/Duration: Constant Severity: Mild Associated Systoms: Loss of Appetite, Malaise; No Shortness of Air; Weakness (JENAE LEÓN) Allergies and Home Medications Allergies Coded Allergies: amoxicillin (Verified Allergy, Unknown, Rash, 02/13/21) Patient Home Medication List Home Medication List Reviewed: Yes (JENAE LEÓN) Antiox #11/Om3/Dha/Epa/Lut/Esther (Eye Health Adult 50+ Softgel) 1 Each Capsule, 1 EACH PO DAILY, (Reported) Entered as Reported by: ELVER GOMEZ on 02/13/21 0841 Cefdinir (Cefdinir) 300 Mg Capsule, 300 MG PO BID Prescribed by: GRISELDA CARDENAS on 02/14/21 1235 Folic Acid (Folic Acid) 1 Mg Tablet, 1 MG PO DAILY, (Reported) Entered as Reported by: ELVER GOMEZ on 02/13/21 0841 Insulin Degludec (Tresiba Flextouch U-200) 200 Unit/1 Ml Insuln.pen, 26 UNITS SC HS, (Reported) Entered as Reported by: ELVER GOMEZ on 02/13/21840 Levothyroxine Sodium (Synthroid) 100 Mcg Tablet, 100 MCG PO DAILY, (Reported) Entered as Reported by: ELVER GOMEZ on 02/13/21840 Metformin HCl (Metformin HCl ER) 500 Mg Tab.er.24h, 1,000 MG PO DAILY, (Reported) Entered as Reported by: ELVER GOMEZ on 02/13/21840 Methotrexate Sodium (Methotrexate) 2.5 Mg Tablet, 20 MG PO WED, (Reported) Entered as Reported by: ELVER GOMEZ on 02/13/21840 Multivitamin/Iron/Folic Acid (Centrum Complete Multivit Tab) 1 Each Tablet, 1 EACH PO DAILY, (Reported) Entered as Reported by: ELVER GOMEZ on 02/13/21840 Omeprazole (Omeprazole) 20 Mg Capsule.dr, 20 MG PO DAILY PRN for HEARTBURN, (Reported) Entered as Reported by: ELVER GOMEZ on 02/13/21840 Semaglutide (Ozempic) 0.25 Mg/0.2 Ml Pen.injctr, 0.5 MG IJ FRI, (Reported) Entered as Reported by: ELVER GOMEZ on 02/13/21840 Review of Systems Review of Systems Constitutional: see HPI, malaise, weakness EENTM: see HPI, no symptoms reported Respiratory: no symptoms reported, see HPI Cardiovascular: see HPI; No chest pain, No edema, No palpitations; other (tachy) Gastrointestinal: RUQ, RLQ, see HPI; No abdominal pain, No constipation, No di arrhea, No hematemesis, No heartburn, No jaundice, No melena, No nausea, No vomiting Genitourinary: no symptoms reported, see HPI Musculoskeletal: no symptoms reported, see HPI Skin: see HPI, change in color (rash to back, legs and arms, biopsy by Dr. Greene, results pending. ) (JENAE LEÓN) All Other Systems Reviewed Negative Unless Noted: Yes (JENAE LÓEN) Past Svvuttm-Lnomfi-Phbyyn Hx Patient Social History Tobacco Use?: No Use of E-Cig and/or Vaping dev: No Substance use?: No Alcohol Use?: No Pt feels they are or have been: No (JENAE LEÓN) Immunizations Up To Date First/Initial COVID19 Vaccinat: August 2020 Second COVID19 Vaccination Ziyad: August 2020 Third COVID19 Vaccination Date: August 2020 (JENAE LEÓN) Past Medical History Surgery/Hospitalization HX: Diabetes, recurrent E. coli urine infections Surgeries: Yes (partial thyroidectomy) Section, Gallbladder, Hysterectomy, Thyroidectomy, Tubal Ligation Respiratory: No Cardiac: No Neurological: Yes Headaches /Migraines Genitourinary: Yes UTI-Chronic Gastrointestinal: No Musculoskeletal: Yes Rheumatoid Arthritis Endocrine: Yes Diabetes, Insulin dep HEENT: Yes (wears glasses) Cancer: No Psychosocial: No Integumentary: No Adverse Reaction/Blood Tranf: No (JENAE LEÓN) Family Medical History Reviewed Nursing Family Hx (JENAE LEÓN) Cancer (JENAE LEÓN) Physical Exam Vital Signs Vital Signs - First Documented 05/24/21 11:36 Temp 36.2 Pulse 130 Resp 22 B/P (MAP) 148/75 (99) Pulse Ox 100 O2 Delivery Room Air (TONY GALLO MD) Vital Signs Capillary Refill : Less Than 3 Seconds (JENAE LEÓN) Height, Weight, BMI Height: '" Weight: lbs. oz. kg; 19.00 BMI Method: General Appearance: No Apparent Distress, WD/WN HEENT: PERRL/EOMI, TMs Normal, Normal ENT Inspection, Pharynx Normal Neck: Full Range of Motion, Normal Inspection, Non Tender, Supple Respiratory: Chest Non Tender, Lungs Clear, Normal Breath Sounds Cardiovascular: No Edema, No JVD, No Murmur, Normal Peripheral Pulses, Tachycardia Gastrointestinal: Normal Bowel Sounds, Non Tender, Soft; No Distended, No Guarding, No Mass, No Rebound, No Tenderness Back: Normal Inspection, No CVA Tenderness, No Vertebral Tenderness Extremity: Normal Capillary Refill, Normal Inspection, No Pedal Edema Neurologic/Psychiatric: Alert, Oriented x3, No Motor/Sensory Deficits, Normal Mood/Affect Skin: Normal Color, Warm/Dry, Rash (maculopapular to legs, arms and back. ) (JENAE LEÓN) Progress/Results/Core Measures Suspected Sepsis SIRS Temperature: Pulse: 130 Respiratory Rate: 22 Laboratory Tests 05/24/21 12:53: White Blood Count 2.8L Blood Pressure 148 /75 Mean: 99 Laboratory Tests 05/24/21 12:53: Creatinine 0.76, INR Comment 1.1, Platelet Count 222, Total Bilirubin 0.3 (JENAE LEÓNP) Results/Orders Lab Results Laboratory Tests Test 05/24/21 11:50 05/24/21 12:53 05/24/21 12:55 05/24/21 13:30 Range/Units Glucometer 48 *L 172 H 70-110 MG/DL White Blood Count 2.8 L 4.3-11.0 10^3/uL Red Blood Count 2.70 L 3.80-5.11 10^6/uL Hemoglobin 6.9 *L 11.5-16.0 g/dL Hematocrit 23 L 35-52 % Mean Corpuscular Volume 83 80-99 fL Mean Corpuscular Hemoglobin 26 25-34 pg Mean Corpuscular Hemoglobin Concent 31 L 32-36 g/dL Red Cell Distribution Width 19.5 H 10.0-14.5 % Platelet Count 222 130-400 10^3/uL Mean Platelet Volume 9.8 9.0-12.2 fL Immature Granulocyte % (Auto) 1 % Neutrophils (%) (Auto) 91 H 42-75 % Lymphocytes (%) (Auto) 5 L 12-44 % Monocytes (%) (Auto) 3 0-12 % Eosinophils (%) (Auto) 0 0-10 % Basophils (%) (Auto) 0 0-10 % Neutrophils # (Auto) 2.5 1.8-7.8 10^3/uL Lymphocytes # (Auto) 0.1 L 1.0-4.0 10^3/uL Monocytes # (Auto) 0.1 0.0-1.0 10^3/uL Eosinophils # (Auto) 0.0 0.0-0.3 10^3/uL Basophils # (Auto) 0.0 0.0-0.1 10^3/uL Immature Granulocyte # (Auto) 0.0 0.0-0.1 10^3/uL Neutrophils % (Manual) 89 % Lymphocytes % (Manual) 2 % Monocytes % (Manual) 6 % Eosinophils % (Manual) 0 % Basophils % (Manual) 0 % Band Neutrophils 3 % Percent Immature Platelet Fraction 1.9 0.0-7.6 % Polychromasia SLIGHT Hypochromasia MARKED Anisocytosis MARKED Elliptocytes SLIGHT Absolute Reticulocyte Count 40 24-90 10e9/uL Percent Reticulocyte Count 1.49 0.50-2.40 % Prothrombin Time 14.4 12.2-14.7 SEC INR Comment 1.1 0.8-1.4 Activated Partial Thromboplast Time 31 24-35 SEC Sodium Level 128 L 135-145 MMOL/L Potassium Level 4.4 3.6-5.0 MMOL/L Chloride Level 98 98-107 MMOL/L Carbon Dioxide Level 19 L 21-32 MMOL/L Anion Gap 11 5-14 MMOL/L Blood Urea Nitrogen 12 7-18 MG/DL Creatinine 0.76 0.60-1.30 MG/DL Estimat Glomerular Filtration Rate 91 BUN/Creatinine Ratio 16 Glucose Level 211 H 70-105 MG/DL Calcium Level 7.3 L 8.5-10.1 MG/DL Corrected Calcium 8.7 8.5-10.1 MG/DL Total Bilirubin 0.3 0.1-1.0 MG/DL Aspartate Amino Transf (AST/SGOT) 17 5-34 U/L Alanine Aminotransferase (ALT/SGPT) < 6 0-55 U/L Alkaline Phosphatase 62 40-136 U/L Lactate Dehydrogenase 202 125-220 U/L Total Protein 5.4 L 6.4-8.2 GM/DL Albumin 2.3 L 3.2-4.5 GM/DL Thyroid Stimulating Hormone (TSH) 0.41 0.35-4.94 UIU/ML Free Thyroxine 1.09 0.70-1.48 NG/DL Test 05/24/21 13:33 Range/Units Urine Color ORANGE Urine Clarity SL CLOUDY Urine pH 6.0 5-9 Urine Specific [place] >=1.030 1.016-1.022 Urine Protein 1+ H NEGATIVE Urine Glucose (UA) TRACE H NEGATIVE Urine Ketones NEGATIVE NEGATIVE Urine Nitrite NEGATIVE NEGATIVE Urine Bilirubin 1+ H NEGATIVE Urine Urobilinogen 1.0 < = 1.0 MG/DL Urine Leukocyte Esterase TRACE H NEGATIVE Urine RBC (Auto) NEGATIVE NEGATIVE Urine RBC 0-2 /HPF Urine WBC 2-5 /HPF Urine Squamous Epithelial Cells 0-2 /HPF Urine Crystals NONE /LPF Urine Bacteria NEGATIVE /HPF Urine Casts NONE /LPF Urine Mucus NEGATIVE /LPF Urine Culture Indicated NO (TONY GALLO MD) Medications Given in ED Current Medications Medications Dose Ordered Sig/Froilan Route Start Time Stop Time Status Last Admin Dose Admin Dextrose/Sodium Chloride 1,000 ml @ 0 mls/hr ONCE ONCE IV 05/24/21 12:00 05/24/21 12:01 DC 05/24/21 12:00 0 MLS/HR (TONY GALLO MD) Vital Signs/I&O 05/24/21 11:36 Temp 36.2 Pulse 130 Resp 22 B/P (MAP) 148/75 (99) Pulse Ox 100 O2 Delivery Room Air (TONY GALLO MD) Vital Signs/I&O Capillary Refill : Less Than 3 Seconds (JENAE LEÓN) Blood Pressure Mean: 99 Progress Note : Time: 11:45 Progress Note Patient seen and evaluated, will obtain labs and reevaluate. 1200 Accu-Chek 41, patient eating [place] crackers, will give D5 half-normal saline over 2 hours. 1245 IV infusing, difficulty with blood draw, awaiting lab. 1300 glucose 211 1345 accucheck [address] Brittany Greene about patient. Clarified that she had a colonoscoy on 05/04/21, along wiht EGD, which both showed no bleeding but white bands with normal biopsy from lower esophagus. Concern of Methotrexate toxicity cause of pancytopenia, not bleeding. Hgb 8.5 yesterday, 6.9 today. Recommended transfer to facility with Rheumatology. 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 Dr. Lopez trail construction worker hospitalist. Since no ladle liner, did not recommend admission. Discussed leucovorin, recommended only for acute toxicity. 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 1445, consult put in with [facility] for rheumatology. Awaiting callback. [address] Kendall at [facility] Rheum. Recommended holding methotrexate, until eval by rheum outpatient. Leucovorin with limited success in patients on chronic methotrexate, since not acute toxicity for overdose not warranted at this time, better to hold Methotrexate. Give 1 unit PRBCs, increase folic acid to 5mg daily, and Hem consult for LGL. No need to transfer to [facility], can be managed here. Relayed to Dr. Aviles. Agreeable with plan for admission here, will place orders. Patient has remained stable, HR 90s-115. No complaints or requests. 1600 eating a lunch tray. Awaiting bed placement on 4th floor. (JENAE LEÓN) ECG Initial ECG Impression Date: May 24, 2021 Initial ECG Impression Time: 13:16 Initial ECG Rate: 109 Initial ECG Rhythm: S.Tach Initial ECG Intervals: Normal Initial ECG Intervals DE 161, QRSD 99, QT 344, QTc 464. Ferdinand P 19, QRS -53, T 17. Initial ECG Impression: Normal Initial ECG Comparisson: No Previous ECG Available (JENAE LEÓN) Departure Impression Primary Impression: Pancytopenia Additional Impressions: Methotrexate toxicity Qualified Codes: T45.1X4A - Poisoning by antineoplastic and immunosuppressive drugs, undetermined, initial encounter Hypoglycemia Abnormal weight loss Disposition: ADMITTED INPATIENT Condition: Stable Admissions Decision to Admit/Date: May 24, 2021 Time/Decision to Admit Time: 14:00 (JENAE LEÓN) Departure-Patient Inst. Referrals: NO,LOCAL PHYSICIAN (PCP) Primary Care Physician ALEC MITCHELL APRN (Family) Primary Care Physician ATTENDING PHYSICIAN NOTE: I was physically present as attending physician in the emergency department during the care of this patient. I received initial report from Dr. Brittany Greene regarding the background of this patient's clinical history. I worked with Dr. Jenae León, MAINTENANCE MECHANIC MILLWRIGHT and developing the assessment and care plan. I agree with the approach and work-up initiated and provided input into work-up that should be pursued. I also agree with the rheumatologic consultation and admission to this facility with PRBC transfusion. I did briefly visit with the patient. I found the patient who was alert and oriented. She appeared thin and in no acute distress. Labs were reviewed. (TONY GALLO MD) Copy Copies To 1: BRITTANY GREENE MD, AMY ARNP May 24, 2021 13:23 TONY GALLO MD May 24, 2021 20:38
[2021-05-24] MEDS ORDERED: NS IV 1000 ML 1,000 ML IV SCH (13:30)
[2021-05-24 13:39] LABS: CLARITY,URINE SL CLOUDY; COLOR,URINE ORANGE; GLUCOSE, URINE (UA) TRACE (NEGATIVE); KETONES,URINE NEGATIVE (NEGATIVE); LEUKOCYTE ESTERASE ,URINE TRACE (NEGATIVE); NITRITE,URINE NEGATIVE (NEGATIVE); PROTEIN,URINE 1+ (NEGATIVE)
[2021-05-24 13:50] LABS: BACTERIA,URINE NEGATIVE /HPF; BILIRUBIN,URINE 1+ (NEGATIVE); RBC,URINE 0-2 /HPF; SQUAMOUS EPITHELIAL CELL,UR 0-2 /HPF
[2021-05-24 13:52] LABS: FREE T4 (FREE THYROXINE) 1.09 NG/DL (0.70-1.48); INR 1.1 (0.8-1.4); PROTHROMBIN TIME PATIENT 14.4 SEC (12.2-14.7)
[2021-05-24 14:41] LABS: ABSOLUTE RETIC # 40 10e9/uL (24-90); BASOPHILS % (AUTO) 0 % (0-10); EOSINOPHILS % (AUTO) 0 % (0-10); HEMATOCRIT 23 % (35-52); LYMPHOCYTES # (AUTO) 0.1 10^3/uL (1.0-4.0); LYMPHOCYTES % (AUTO) 5 % (12-44); MEAN CORPUSCULAR HEMOGLOBIN 26 pg (25-34); MEAN CORPUSCULAR HGB CONC 31 g/dL (32-36); MEAN CORPUSCULAR VOLUME 83 fL (80-99); MEAN PLATELET VOLUME 9.8 fL (9.0-12.2); MONOCYTES # (AUTO) 0.1 10^3/uL (0.0-1.0); MONOCYTES % (AUTO) 3 % (0-12); NEUTROPHILS # (AUTO) 2.5 10^3/uL (1.8-7.8); NEUTROPHILS % (AUTO) 91 % (42-75); PLATELET COUNT 222 10^3/uL (130-400); RETICULOCYTE % 1.49 % (0.50-2.40); WHITE BLOOD COUNT 2.8 10^3/uL (4.3-11.0)
[2021-05-24 14:43] LABS: HEMOGLOBIN 6.9 g/dL (11.5-16.0)
[2021-05-24 14:44] LABS: ANISOCYTOSIS MARKED; BAND NEUTROPHILS 3 %; BASOPHILS % (MANUAL) 0 %; ELLIPT/OVALOCYTES SLIGHT; EOSINOPHILS % (MANUAL) 0 %; HYPOCHROMASIA MARKED; LYMPHOCYTES % (MANUAL) 2 %; MONOCYTES % (MANUAL) 6 %; NEUTROPHILS % (MANUAL) 89 %; POLYCHROMASIA SLIGHT
[2021-05-24 16:30] VITALS: BP 118/70
[2021-05-24] MEDS ORDERED: LACTULOSE SYRUP 10GM/15ML (ENULOSE) 30ML UDC PO PRN (17:00)
[2021-05-24] MEDS ORDERED: morphine INJ 4 MG/ML 1 ML (VIAL/SYRINGE) IV PRN (17:00)
[2021-05-24] MEDS ORDERED: BISACODYL 10 MG SUPP (DULCOLAX) PR PRN (17:00)
[2021-05-24] MEDS ORDERED: polyethylene glycoL POWDER 17 GM (MIRALAX) PACK PO PRN (17:00)
[2021-05-24] MEDS ORDERED: NS IV 500 ML 500 ML IV SCH ×2 (17:00)
[2021-05-24] MEDS ORDERED: ONDANSETRON 4 MG/2 ML (SDV) Z0FRAN IV PRN (17:00)
[2021-05-24] MEDS ORDERED: ACETAMINOPHEN 325 MG TABLET PO PRN (17:00)
[2021-05-24] MEDS ORDERED: MELATONIN 3 MG TABLET PO PRN (17:00)
[2021-05-24] MEDS ORDERED: diphenhydrAMINE 50 MG/ML INJ (BENADRYL) IVP PRN (17:00)
[2021-05-24] MEDS ORDERED: ANTACID SUSP 30 ML UDC (MYLANTA) PO PRN (17:00)
[2021-05-24] MEDS ORDERED: CALCIUM CARBONATE 500 MG (TUMS) TAB.CHEW PO PRN (17:00)
[2021-05-24] MEDS ORDERED: ONDANSETRON 4 MG (ZOFRAN) ORAL DISSOLVE TAB PO PRN (17:00)
[2021-05-24] MEDS ORDERED: MILK OF MAGNESIA 400 MG/5 ML 30 ML UDC PO PRN (17:00)
[2021-05-24] MEDS ORDERED: diphenhydrAMINE 25 MG TAB (BENADRYL) PO PRN (17:00)
[2021-05-24] MEDS: NS IV 1000 ML 1,000 ML IV SCH (18:11)
[2021-05-24 18:12] VITALS: BP 118/70
[2021-05-24 18:28] VITALS: BP 122/72
[2021-05-24 19:59] VITALS: BP 131/66
[2021-05-24 20:44] VITALS: BP 122/71
[2021-05-24] MEDS: DOCUSATE SODIUM 100 MG (COLACE) CAP PO SCH (20:46)
[2021-05-24] MEDS: SENNOSIDES 8.6 MG (SENOKOT) TAB PO SCH (20:46)
[2021-05-24] MEDS: inSUlin ASPART (NovoLOG) 1 UNIT/0.01 ML (CHARGE PER UNIT) SC SCH (21:30)
[2021-05-24 23:49] VITALS: BP 148/75
[2021-05-25] MEDS ORDERED: RT-ALBUTEROL HFA 8.5 GM INHALER IH PRN
[2021-05-25 00:13] VITALS: BP 120/61
[2021-05-25 04:13] VITALS: BP 118/66
[2021-05-25] MEDS: inSUlin ASPART (NovoLOG) 1 UNIT/0.01 ML (CHARGE PER UNIT) SC SCH ×2 (05:31→12:36)
--- NOTE | 2021-05-25 06:09 | History & Physical-Hospitalist ---
History of Present Illness Date Seen 05/25/21 Attending Physician Hannah Aviles DO [facility] Referring Physician Date of Admission May 24, 2021 at 15:30 Home Medications & Allergies Home Medications Reviewed patient Home Medication Reconciliation performed by pharmacy medication reconciliations systems test technician and/or nursing. Patients Allergies have been reviewed. Allergies Allergies Coded Allergies amoxicillin (Verified Allergy, Unknown, Rash, 02/13/21) Past Ceeavbk-Glbqnr-Yvesae Hx Patient Social History Tobacco Use?: No Smoking Status: Never a Smoker Smokeless Tobacco Frequency: Never a User Use of E-Cig and/or Vaping dev: No Substance use?: No Alcohol Use?: No Pt feels they are or have been: No Immunizations Up To Date First/Initial COVID19 Vaccinat: Moderna JULY 2020 Second COVID19 Vaccination Ziyad: Moderna August 2020 Current Status Advance Directives: No Communicates: Verbally Primary Language: Croatian Preferred Spoken Language: Croatian Is interpretation needed?: No Past Medical History Surgeries: Section, Gallbladder, Hysterectomy, Thyroidectomy, Tubal Ligation Headaches /Migraines UTI-Chronic Rheumatoid Arthritis Diabetes, Insulin dep Adverse Reaction/Blood Tranf: No PMHx: Diabetes Rheumatoid arthritis Hypothyroidism SurgHx: Partial thyroidectomy- benign Hysterectomy Cholecystectomy Tubal ligation Family Medical History Reviewed Nursing Family Hx Cancer Physical Exam Physical Exam Vital Signs Vital Signs - First Documented 05/24/21 05/24/21 11:36 23:49 Temp 36.2 Pulse 130 Resp 22 B/P (MAP) 148/75 (99) Pulse Ox 100 O2 Delivery Room Air FiO2 21 Capillary Refill : Less Than 3 Seconds Height, Weight, BMI Height: '" Weight: lbs. oz. kg; 19.48 BMI Method: Results Results/Procedures Labs Laboratory Tests 05/24/21 12:53 05/25/21 05:25 05/25/21 05:45 Patient resulted labs reviewed. Clinical Quality Measures DVT/VTE Risk/Contraindication: Contraindications-Pharm: Other *list below* Other: anemia HANNAH AVILES DO May 25, 2021 06:09
[2021-05-25 06:15] LABS: BASOPHILS % (AUTO) 1 % (0-10); EOSINOPHILS % (AUTO) 1 % (0-10); HEMATOCRIT 28 % (35-52); LYMPHOCYTES # (AUTO) 0.2 10^3/uL (1.0-4.0); LYMPHOCYTES % (AUTO) 12 % (12-44); MEAN CORPUSCULAR HEMOGLOBIN 26 pg (25-34); MEAN CORPUSCULAR HGB CONC 32 g/dL (32-36); MEAN CORPUSCULAR VOLUME 83 fL (80-99); MEAN PLATELET VOLUME 9.5 fL (9.0-12.2); MONOCYTES # (AUTO) 0.1 10^3/uL (0.0-1.0); MONOCYTES % (AUTO) 4 % (0-12); NEUTROPHILS # (AUTO) 1.3 10^3/uL (1.8-7.8); NEUTROPHILS % (AUTO) 82 % (42-75); PLATELET COUNT 192 10^3/uL (130-400); WHITE BLOOD COUNT 1.6 10^3/uL (4.3-11.0)
[2021-05-25 06:34] LABS: ALBUMIN 2.4 GM/DL (3.2-4.5); CHLORIDE 104 MMOL/L (98-107); POTASSIUM 3.7 MMOL/L (3.6-5.0); SODIUM 131 MMOL/L (135-145)
[2021-05-25 06:35] LABS: CALCIUM 7.5 MG/DL (8.5-10.1)
[2021-05-25 06:36] LABS: GLUCOSE 76 MG/DL (70-105); TOTAL PROTEIN 5.4 GM/DL (6.4-8.2)
[2021-05-25 06:37] LABS: CARBON DIOXIDE 18 MMOL/L (21-32)
[2021-05-25 06:38] LABS: BILIRUBIN,TOTAL 0.5 MG/DL (0.1-1.0)
[2021-05-25 06:40] LABS: ALKALINE PHOSPHATASE 64 U/L (40-136); CREATININE SERUM 0.69 MG/DL (0.60-1.30); GFR ESTIMATED 101
[2021-05-25 06:41] LABS: BUN/CREATININE RATIO 12
[2021-05-25 06:43] LABS: ALANINE AMINOTRANSFERASE < 6 U/L (0-55)
[2021-05-25 07:13] VITALS: BP 124/67
[2021-05-25] MEDS ORDERED: FOLIC ACID 1 MG TAB PO SCH (09:00)
[2021-05-25] MEDS: SENNOSIDES 8.6 MG (SENOKOT) TAB PO SCH (09:42)
[2021-05-25] MEDS: DOCUSATE SODIUM 100 MG (COLACE) CAP PO SCH (09:42)
[2021-05-25] MEDS ORDERED: ASPI-789 PO (10:25)
[2021-05-25] MEDS ORDERED: NITR100C10 PO (10:25)
[2021-05-25] MEDS ORDERED: DOCU-26 PO (10:25)
--- NOTE | 2021-05-25 10:27 | Physical Therapy Evaluation ---
PT Evaluation-General Medical Diagnosis Admission Date May 24, 2021 at 15:30 Medical Diagnosis: Methotrexate Toxicity Onset Date: May 24, 2021 Therapy Diagnosis Therapy Diagnosis: Impaired strength, activity tolerance Precautions Precautions/Isolations: Standard Precautions Weight Bear Status Full Weight Bearing Full Weight Bearing Referral Physician: Hannah Aviles DO Reason for Referral: Evaluation/Treatment Medical History Pertinent Medical History: DM, Rheumatoid Arthritis Current History ER visit secondary to weakness. 20lb weight loss over course of 3 months. Reviewed History: Yes Social History Home: Single Level Current Living Status: Significant Other Entry Into Home: Stairs With Railing PT Steps Into Home: 3 Prior Prior Level of Function SCALE: Activities may be completed with or without assistive devices. 0-Fydngfqdxa-aypxlaa completes the activity by him/herself with no assistance from a helper. 5-Set-up or Clean-up Assistance-helper sets up or cleans up; patient completes activity. [place] assists only prior to or following the activity. 4-Supervision or Touching Assistance-helper provides verbal cues and/or touching/steadying and/or contact guard assistance as patient completes activity. Assistance may be provided throughout the activity or intermittently. 3-Partial/Moderate Assistance-helper does LESS THAN HALF the effort. [place] lifts, holds or supports trunk or limbs, but provides less than half the effort. 2-Substantial/Maximal Assistance-helper does MORE THAN HALF the effort. [place] lifts or holds trunk or limbs and provides more than half the effort. 3-Fkruflopq-mfxpdl does ALL the effort. Patient does none of the effort to complete the activity. Or, the assistance of 2 or more helpers is required for the patient to complete the activity. If activity was not attempted, code reason: 7-Patient Refused. 9-Not Applicable-not attempted and the patient did not perform the activity before the current illness, exacerbation or injury. 10-Not Attempted due to Environmental Limitations-(lack of equipment, weather restraints, etc.). 88-Not Attempted due to Medical Conditions or Safety Concerns. Bed Mobility: 6 Transfers (B,C,W/C): 6 Gait: 4 Stairs: 4 Indoor Mobility (Ambulation): Needed Some Help Stairs: Needed Some Help No walker at home. Used PHOTONICS TECHNICIAN when feeling weak the past to months for mobility PT Evaluation-Current Subjective Patient reports no new complaints today. Pain Location: No Pain Reported Objective Patient Orientation: Person, Place, Time, Situation ROM/Strength ROM Lower Extremities Grossly Bilateral WFL Strength Lower Extremities Grossly Bilateral WFL Integumentary/Posture Bowel Incontinence: No Bladder Incontinence: No Neuromuscular (Tone, Coordination, Reflexes) Grossly intact Sensory Hearing: Functional Sensation Right Lower Extremit: Intact Sensation Left Lower Extremity: Intact Transfers Sit to Stand (QC): 5 Gait Does the Patient Walk?: Yes Mode of Locomotion: Walk Anticipated Mode of Locomotion: Walk Walk 10 feet (QC): 4 Walk 50 ft with 2 Turns(QC): 4 Walk 150 ft (QC): 4 Distance: 300' Gait Assistive Device: FWW Wheelchair Training Does the Pt Use a Wheelchair?: No Type of Wheelchair: N/A Balance Sitting Static: Normal Sitting Dynamic: Normal Standing Static: Normal Standing Dynamic: Normal Treatment Ambulation Assessment/Needs Patient appears very weak and tired, however ambulated well with FWW and SBA for 300'. Rehab Potential: Fair PT Jail Goals Jail Goals PT Commercial Director Goals Time Frame: Jun 08, 2021 Roll Left & Right (QC): 6 Sit to Lying (QC): 6 Lying-Sitting on Side/Bed(QC): 6 Sit to Stand (QC): 6 Chair/Gro-mi-Cubyt Xfer(QC): 6 Toilet Transfer (QC): 6 Car Transfer (QC): 6 Does the Patient Walk: Yes Walk 10 feet (QC): 6 Walk 50ft with 2 Turns (QC): 6 Walk 150 ft (QC): 6 Does the Pt use WC or Scooter?: No Type: N/A Type: N/A PT Plan Problem List Problem List: Activity Tolerance, Functional Strength, Safety, Balance, Gait, Transfer Treatment/Plan Treatment Plan: Continue Plan of Care Treatment Plan: Bed Mobility, Education, Functional Activity Daniela, Functional Strength, Gait, Safety, Therapeutic Exercise, Transfers Treatment Duration: Jun 08, 2021 Frequency: 6 times per week Estimated Hrs Per Day: .25 hour per day Patient and/or Family Agrees t: Yes Time/GCodes Time In: 944 Time Out: 957 Total Billed Treatment Time: 13 Total Billed Treatment 1 visit EVLow 13min NAVEEN ORTIZ PT May 25, 2021 10:27
--- NOTE | 2021-05-25 10:46 | Occupational Therapy Eval ---
OT Evaluation-General/PLF Medical Diagnosis Admission Date May 24, 2021 at 15:30 Medical Diagnosis: Methotrexate Toxicity Onset Date: May 24, 2021 Therapy Diagnosis Therapy Diagnosis: reduced endurance Precautions Precautions/Isolations: Standard Precautions Referral Physician: Hannah Aviles DO Referral Reason: Evaluation/Treatment Medical History Pertinent Medical History: DM, Rheumatoid Arthritis Current History Pt arrived to hospital with c/o weakness and R side pain. Per patient, this has lasted since January 2021. Pt states she lives in a mobile home with her spouse. She was independent with adls, except provides CGA-min a for balance during bathing tasks. Spouse provides all iadls. Pt reports she does not leave the home except for medical appointments. She does not use any AD, but will have SAFETY REPRESENTATIVE from spouse when walking to/from appointments. Pt reports multiple doctor appointments for rheumatoid arthritis but joints appear WNL. Reviewed History: Yes Social History Home: Single Level (mobile home) Current Living Status: Significant Other Entry Into Home: Stairs With Railing Steps Into Home: 3 ADL-Prior Level of Function SCALE: Activities may be completed with or without assistive devices. 3-Nszqmzffks-ughqrdr completes the activity by him/herself with no assistance from a helper. 5-Set-up or Clean-up Assistance-helper sets up or cleans up; patient completes activity. [place] assists only prior to or following the activity. 4-Supervision or Touching Assistance-helper provides verbal cues and/or touching/steadying and/or contact guard assistance as patient completes activity. Assistance may be provided throughout the activity or intermittently. 3-Partial/Moderate Assistance-helper does LESS THAN HALF the effort. [place] lifts, holds or supports trunk or limbs, but provides less than half the effort. 2-Substantial/Maximal Assistance-helper does MORE THAN HALF the effort. [place] lifts or holds trunk or limbs and provides more than half the effort. 7-Hynhfwmsd-qpxyxh does ALL the effort. Patient does none of the effort to complete the activity. Or, the assistance of 2 or more helpers is required for the patient to complete the activity. If activity was not attempted, code reason: 7-Patient Refused. 9-Not Applicable-not attempted and the patient did not perform the activity before the current illness, exacerbation or injury. 10-Not Attempted due to Environmental Limitations-(lack of equipment, weather restraints, etc.). 88-Not Attempted due to Medical Conditions or Safety Concerns. Self Care: Needed Some Help Functional Cognition: Independent DME/Equipment: Tub/Shower Drive Self: No OT Current Status Subjective Pt reports mild R sided trunk pain. RN aware. Appearance Pt left sitting in chair, IV infusing, all needs within reach. Mental Status/Objective Patient Orientation: Person, Place, Situation Attachments: IV, Telemetry Current Glasses/Contacts: Yes Hearing Aids: No Hand Dominance: Right Upper Extremity ROM WNL Upper Extremity Strength 3+/5 grossly ADL-Treatment Eating (QC): 6 Upper Body Dressing (QC): 5 (per patient report) Lower Body Dressing (QC): 5 (per patient report) On/Off Footwear (QC): 6 Toileting Hygiene (QC): 6 Pt sitting in recliner at OT arrival. Able to don/doff bilateral socks/shoes without difficulty. She stood independently and was able to stand for >1 minute with zero UE support. She was able to reach for objects out of her NELI without any LOB or unsteadiness observed. Pt ambulated to/from bathroom with use of walker and SBA for management of IV pole. All toileting tasks performed independently. Per patient, she donned clothing with set up only. She verbalizes that she fatigues easily but is also sedentary at home. She expresses how during bathing tasks, her spouse is always near and will provide intermittent cga-min a for balance towards end of shower due to fatigue. OT educated pt on energy conservation strategies and purchase of DME to improve safety and indep with task. OT also discussed sponge baths at sink if needed during days of fatigue. Education OT Patient Education: Correct positioning, Energy conservation, Modified ADL techniques, Purpose of tx/functional activities, Safety issues, Use of adapted equipment Teaching Recipient: Patient Teaching Methods: Discussion Response to Teaching: Verbalize Understanding OT Casket Upholsterer Goals Casket Upholsterer Goals 1=Demonstrate adherence to instructed precautions during ADL tasks. 2=Patient will verbalize/demonstrate understanding of assistive devices/modifications for ADL. 3=Patient will improve strength/tolerance for activity to enable patient to perform ADL's. OT Education/Plan Problem List/Assessment Assessment: No Skilled OT Needs ID'd Discharge Recommendations Plan/Recommendations: Discontinue OT Therapy Discharge Recommendati: Home & Family Treatment Plan/Plan of Care Treatment,Training & Education: Yes Patient would benefit from OT for education, treatment and training to promote independence in ADL's, mobility, safety and/or upper extremity function for ADL's. Plan of Care: ADL Retraining Treatment Duration: May 25, 2021 Frequency: 1 time per week Estimated Hrs Per Day: .25 hour per day Agreement: Yes Time/GCodes Start Time: 10:25 Stop Time: 10:37 Total Time Billed (hr/min): 12 Billed Treatment Time 1 visit Rylee Edmonds OT May 25, 2021 10:46
--- NOTE | 2021-05-25 11:18 | Short Stay Summary-Hospitalist ---
History of Present Illness HPI/Chief Complaint CC: Methotrexate toxicity HPI: 55 yr old clinic pt of Dr. Espana. I admitted pt for hemoglobin of 6.9 and evidence of Methotrexate toxicity. She was given an increased dose of folic acid of 5 mg daily. That will continue for several days. She was given one unit of blood. Hemoglobin today is 9. Hematology consult is [facility] recommended. Dr. Espana was updated and she will go home in improved condition. Source: patient Exam Limitations: no limitations Date Seen 05/25/21 Time Seen by a Provider: 11:00 Attending Physician Hannah Aviles DO [facility] [place] Referring Physician Date of Admission May 24, 2021 at 15:30 Home Medications & Allergies Home Medications Reviewed patient Home Medication Reconciliation performed by pharmacy medication reconciliations corn lab technician and/or nursing. Patients Allergies have been reviewed. Allergies Allergies Coded Allergies amoxicillin (Verified Allergy, Unknown, Rash, 02/13/21) Past Lhdsebs-Nloasq-Mgsxtu Hx Patient Social History Marrital Status: single Employed/Student: unemployed Tobacco Use?: No Smoking Status: Never a Smoker Smokeless Tobacco Frequency: Never a User Use of E-Cig and/or Vaping dev: No Substance use?: No Alcohol Use?: No Pt feels they are or have been: No Immunizations Up To Date First/Initial COVID19 Vaccinat: Moderna JULY 2020 Second COVID19 Vaccination Ziyad: Moderna August 2020 Current Status Advance Directives: No Communicates: Verbally Primary Language: Lithuanian Preferred Spoken Language: Lithuanian Is interpretation needed?: No Past Medical History Surgeries: Section, Gallbladder, Hysterectomy, Thyroidectomy, Tubal Ligation Headaches /Migraines UTI-Chronic Rheumatoid Arthritis Diabetes, Insulin dep Adverse Reaction/Blood Tranf: No PMHx: Diabetes Rheumatoid arthritis Hypothyroidism SurgHx: Partial thyroidectomy- benign Hysterectomy Cholecystectomy Tubal ligation Family Medical History Reviewed Nursing Family Hx Cancer Review of Systems Constitutional: see HPI, malaise, weakness EENTM: no symptoms reported Respiratory: no symptoms reported Cardiovascular: no symptoms reported Gastrointestinal: no symptoms reported Genitourinary: no symptoms reported Musculoskeletal: no symptoms reported Skin: no symptoms reported Psychiatric/Neurological: No Symptoms Reported All Other Systems Reviewed Negative Unless Noted: Yes Physical Exam Physical Exam Vital Signs Vital Signs - First Documented 05/24/21 05/24/21 11:36 23:49 Temp 36.2 Pulse 130 Resp 22 B/P (MAP) 148/75 (99) Pulse Ox 100 O2 Delivery Room Air FiO2 21 Capillary Refill : Less Than 3 Seconds Height, Weight, BMI Height: '" Weight: lbs. oz. kg; 19.48 BMI Method: General Appearance: No Apparent Distress, WD/WN, Chronically ill, Thin HEENT: PERRL/EOMI, Normal ENT Inspection, Pharynx Normal Neck: Full Range of Motion, Normal Inspection, Non Tender, Supple Respiratory: Chest Non Tender, Lungs Clear, Normal Breath Sounds Cardiovascular: No Edema, No JVD, No Murmur, Normal Peripheral Pulses, Tachycardia Gastrointestinal: Normal Bowel Sounds, Non Tender, Soft; No Distended, No Guarding, No Mass, No Rebound, No Tenderness Back: Normal Inspection, No CVA Tenderness, No Vertebral Tenderness Extremity: Normal Capillary Refill, Normal Inspection, No Pedal Edema Neurologic/Psychiatric: Alert, Oriented x3, No Motor/Sensory Deficits, Normal M ood/Affect Skin: Normal Color, Warm/Dry, Rash (maculopapular to legs, arms and back. ) Results Results/Procedures Labs Laboratory Tests 05/25/21 05:25 05/25/21 05:45 Patient resulted labs reviewed. Short Stay Diagnosis Discharge Diagnosis-Short Stay Admission Diagnosis Assessment: MTX toxicity Pancytopenia Anemia requiring 1 unit of blood and consulting Hematology RA DM Thin frail status Final Discharge Diagnosis Assessment: MTX toxicity Pancytopenia Anemia requiring 1 unit of blood and consulting Hematology RA DM Thin frail status Conclusion Plan Plan: DC home Folic acid 5mg daily DC MTX Clinical Quality Measures DVT/VTE Risk/Contraindication: Contraindications-Pharm: Other *list below* Other: anemia HANNAH AVILES DO May 25, 2021 11:18
[2021-05-25] MEDS ORDERED: FOLI1TAB33 PO (11:21)
[2021-05-25 11:44] VITALS: BP 118/72
[2021-05-25] MEDS: NS IV 1000 ML 1,000 ML IV SCH (12:27)
--- NOTE | 2021-05-25 13:23 | Oncology Consultation ---
Visit Information Visit Information Date of Admission May 24, 2021 at 15:30 Attending Physician Hannah Aviles DO Admitting Physician [facility] Chief Complaint Severe anemia, symptomatic Interval History Ms. Salas is a 55 year old white female admitted from ER due to weakness and found to have Hb 6.9. She has been on MTX for rheumatoid arthritis for many years and recently increased her MTX dose from 12mg to 15mg. Also the doctor who treated her rheumatoid arthritis retired and she is in the processing of finding a new doctor. She had one unit RBC transfusion yesterday and her Hb is up to 9 today. She is feeling better and ready to go home. I consulted the patient on: 05/25/21 13:18 Time Seen by Provider: 10:00 Review of Systems Constitutional: see HPI Health Status Allergies Coded Allergies: amoxicillin (Verified Allergy, Unknown, Rash, 02/13/21) Home Medications Aspirin/Acetaminophen/Caffeine (Excedrin Migraine Caplet) 1 Each Tablet, 2 EACH PO Q6-8HR PRN for Headache, (Reported) Docusate Sodium (Stool Softener) 100 Mg Capsule, 100-200 MG PO DAILY PRN for CONSTIPATION-1ST LINE, (Reported) Folic Acid (Folic Acid) 1 Mg Tablet, 5 MG PO DAILY, #30 Prescribed by: HANNAH AVILES on 05/25/21 1121 Insulin Degludec (Tresiba Flextouch U-200) 200 Unit/1 Ml Insuln.pen, 26 UNITS SC HS, (Reported) Levothyroxine Sodium (Synthroid) 100 Mcg Tablet, 100 MCG PO DAILY, (Reported) Nitrofurantoin Monohyd/M-Cryst (Nitrofurantoin Coos-Mcr 100 mg) 100 Mg Capsule, 100 MG PO DAILY, (Reported) Omeprazole (Omeprazole) 20 Mg Capsule.dr, 20 MG PO DAILY, (Reported) XGW-Qrlawd-Xwrhbh Hx Patient Social History Smoking Status: Never a Smoker 2nd Hand Smoke Exposure: No Alcohol Use?: No Have you traveled recently?: No Family Medical History Significant Family History: Cancer Physical Exam Vital Signs Vital Signs - First Documented 05/24/21 05/24/21 11:36 23:49 Temp 36.2 Pulse 130 Resp 22 B/P (MAP) 148/75 (99) Pulse Ox 100 O2 Delivery Room Air FiO2 21 Capillary Refill : Less Than 3 Seconds Height, Weight, BMI Height: '" Weight: lbs. oz. kg; 19.48 BMI Method: General Appearance: No Apparent Distress HEENT: PERRL/EOMI Respiratory: No Accessory Muscle Use, No Respiratory Distress Cardiovascular: Regular Rate, Rhythm Gastrointestinal: Non Tender, Soft Neurologic/Psychiatric: Alert, Oriented x3 Data Review Labs Laboratory Tests 05/25/21 05:25 05/25/21 05:45 Laboratory Tests 05/24/21 11:50: Glucometer 48*L 05/24/21 12:53: White Blood Count 2.8L, Red Blood Count 2.70L, Hemoglobin 6.9*L, Hematocrit 23L, Mean Corpuscular Hemoglobin Concent 31L, Red Cell Distribution Width 19.5H, Neutrophils (%) (Auto) 91H, Lymphocytes (%) (Auto) 5L, Lymphocytes # (Auto) 0.1L , Sodium Level 128L, Carbon Dioxide Level 19L, Glucose Level 211H, Calcium Level 7.3L, Total Protein 5.4L, Albumin 2.3L 05/24/21 12:55: 05/24/21 13:30: Glucometer 172H 05/24/21 13:33: Urine Protein 1+H, Urine Glucose (UA) TRACEH, Urine Bilirubin 1+H, Urine Leukocyte Esterase TRACEH 05/24/21 21:13: Glucometer 141H 05/25/21 05:25: White Blood Count 1.6L, Red Blood Count 3.43L, Hemoglobin 9.0#L, Hematocrit 28L, Red Cell Distribution Width 18.4H, Neutrophils (%) (Auto) 82H, Neutrophils # (Auto) 1.3L, Lymphocytes # (Auto) 0.2L 05/25/21 05:45: Sodium Level 131L, Carbon Dioxide Level 18L, Calcium Level 7.5L, Total Protein 5.4L, Albumin 2.4L 05/25/21 06:28: 05/25/21 11:47: Glucometer 202H Impression & Plan Impression & Plan IMP: 1. Severe anemia, symptomatic, iron study pending, most likely due to MTX toxicity. 2. RA on MTX for many years and recently increased MTX dose. 3. Recent GI scope did not reveal bleeding source. 4. Leukopenia due to MTX Rec: 1. Hold off MTX. Find a new trader fixed income to discuss the newer treatment options with less marrow suppression 2. Good response from the one unit RBC transfusion. Hb 9 today. Pt could not handle oral iron pills in the past. 3. Can be discharged from hematology point of view 4. See me at the cancer center in 3-4 weeks to f/u leukopenia and anemia and possible IV iron infusion if her iron study result from the this admission shows low. Thank you for the consultation. AARON COSTELLO MD May 25, 2021 13:23
[2021-05-25 13:30] VITALS: BP 118/72
== END 2021-05-25 13:31 | disposition home or self-care (01) ==
LOC: EDUNIT# 11:30 → ER 11:32 → 4TH 15:30
PROVIDERS: ADMIT Internal Medicine; ATTEND Internal Medicine
DX: R53.1 Weakness (principal); R53.83 Other fatigue; D61.810 Antineoplastic chemotherapy induced pancytopenia; L27.0 Generalized skin eruption due to drugs and medicaments taken internally; T45.1X5A Adverse effect of antineoplastic and immunosuppressive drugs, initial encounter; M06.9 Rheumatoid arthritis, unspecified; E11.649 Type 2 diabetes mellitus with hypoglycemia without coma; D64.9 Anemia, unspecified; E03.9 Hypothyroidism, unspecified; Z79.84 Long term (current) use of oral hypoglycemic drugs; Z88.1 Allergy status to other antibiotic agents
CPT/HCPCS: 80053 ×2; 81000; 82607; 82728; 82746; 82947 ×2; 83540; 83550; 83615; 84439; 84443; 85007; 85025; 85027; 85045; 85055; 85610; 85730; 86850; 86900; 86901; 86920; 93005; 97161; 97165; 99284; G0378; P9016; 36415; 36430; 96360; 96361

== ENCOUNTER 2021-06-06 21:14 | Inpatient (IN) | payer OTHER ==
[~2021-06-06] VITALS: Ht 162 cm; Wt 54.0 kg
[~2021-06-06 21:14] MED LIST changes: +ASPI-789 PO; +DOCU-26 PO; +NITR100C10 PO
[2021-06-06 21:46] LABS: BASOPHILS % (AUTO) 0 % (0-10); EOSINOPHILS % (AUTO) 0 % (0-10); HEMATOCRIT 30 % (35-52); HEMOGLOBIN 9.4 g/dL (11.5-16.0); LYMPHOCYTES # (AUTO) 0.3 10^3/uL (1.0-4.0); LYMPHOCYTES % (AUTO) 15 % (12-44); MEAN CORPUSCULAR HEMOGLOBIN 26 pg (25-34); MEAN CORPUSCULAR HGB CONC 31 g/dL (32-36); MEAN CORPUSCULAR VOLUME 83 fL (80-99); MEAN PLATELET VOLUME 9.1 fL (9.0-12.2); MONOCYTES # (AUTO) 0.2 10^3/uL (0.0-1.0); MONOCYTES % (AUTO) 10 % (0-12); NEUTROPHILS # (AUTO) 1.7 10^3/uL (1.8-7.8); NEUTROPHILS % (AUTO) 74 % (42-75); PLATELET COUNT 231 10^3/uL (130-400); WHITE BLOOD COUNT 2.3 10^3/uL (4.3-11.0)
--- NOTE | 2021-06-06 21:50 | ED General ---
General Chief Complaint: Glucose Problems Stated Complaint: BLOOD SUGAR FLUCUATING Source of Information: Patient, Family Exam Limitations: No Limitations History of Present Illness Date Seen by Provider: Jun 06, 2021 Time Seen by Provider: 21:20 Initial Comments 55yoF with PMH of DM and RA with recently diagnosed methotrexate toxicity discharged form the hospital over a week ago. She required a blood transfusion and was found to be pancytopenic related to this. She had consults with rheumatology at and hematology in [place]. She has intermittently had low blood sugars recently and family got home from work around 4pm and she wasn't acting right. He gave her juice and now acting more normal. She did take her insulin today but she can't remember if she ate anything. Allergies and Home Medications Allergies Coded Allergies: amoxicillin (Verified Allergy, Unknown, Rash, 02/13/21) Patient Home Medication List Home Medication List Reviewed: Yes Aspirin/Acetaminophen/Caffeine (Excedrin Migraine Caplet) 1 Each Tablet, 2 EACH PO Q6-8HR PRN for Headache, (Reported) Entered as Reported by: ELVER GOMEZ on 05/25/21 1025 Docusate Sodium (Stool Softener) 100 Mg Capsule, 100-200 MG PO DAILY PRN for CONSTIPATION-1ST LINE, (Reported) Entered as Reported by: ELVER GOMEZ on 05/25/21 1025 Folic Acid (Folic Acid) 1 Mg Tablet, 5 MG PO DAILY Prescribed by: HAYDEN CARDONA on 05/25/21 1121 Insulin Degludec (Tresiba Flextouch U-200) 200 Unit/1 Ml Insuln.pen, 26 UNITS SC HS, (Reported) Entered as Reported by: ELVER GOMEZ on 02/13/21 0841 Levothyroxine Sodium (Synthroid) 100 Mcg Tablet, 100 MCG PO DAILY, (Reported) Entered as Reported by: ELVER GOMEZ on 02/13/21 0841 Nitrofurantoin Monohyd/M-Cryst (Nitrofurantoin Daggett-Mcr 100 mg) 100 Mg Capsule, 100 MG PO DAILY, (Reported) Entered as Reported by: ELVER GOMEZ on 05/25/21 1025 Omeprazole (Omeprazole) 20 Mg Capsule.dr, 20 MG PO DAILY, (Reported) Entered as Reported by: ELVER GOMEZ on 02/13/21 0841 Review of Systems Review of Systems Constitutional: No chills; fever EENTM: No blurred vision Respiratory: No cough Cardiovascular: No chest pain Gastrointestinal: No abdominal pain Genitourinary: no symptoms reported Musculoskeletal: joint pain Skin: rash Psychiatric/Neurological: Other (confusion) Immunological/Allergic: no symptoms reported All Other Systems Reviewed Negative Unless Noted: Yes Past Yvyorrs-Zifpfu-Ddenwf Hx Patient Social History Tobacco Use?: No Immunizations Up To Date First/Initial COVID19 Vaccinat: July 2020 Second COVID19 Vaccination Ziyad: August 2020 Third COVID19 Vaccination Date: August 2020 Past Medical History Surgery/Hospitalization HX: Diabetes, recurrent E. coli urine infections Surgeries: Yes (partial thyroidectomy) Section, Gallbladder, Hysterectomy, Thyroidectomy, Tubal Ligation Respiratory: No Cardiac: No Neurological: Yes Headaches /Migraines Genitourinary: Yes UTI-Chronic Gastrointestinal: No Musculoskeletal: Yes Rheumatoid Arthritis Endocrine: Yes Diabetes, Insulin dep HEENT: Yes (wears glasses) Cancer: No Psychosocial: No Integumentary: No Adverse Reaction/Blood Tranf: No Family Medical History Cancer Physical Exam Vital Signs Vital Signs - First Documented 06/06/21 21:18 Temp 38.4 Pulse 133 Resp 18 B/P (MAP) 131/81 (98) Pulse Ox 100 O2 Delivery Room Air Capillary Refill : Height, Weight, BMI Height: '" Weight: lbs. oz. kg; 19.48 BMI Method: General Appearance: No Apparent Distress, WD/WN Eyes: Bilateral Eye Normal Inspection HEENT: PERRL/EOMI, Normal ENT Inspection, Pharynx Normal Neck: Full Range of Motion, Normal Inspection, Non Tender, Supple Respiratory: Chest Non Tender, Lungs Clear, Normal Breath Sounds, No Accessory Muscle Use, No Respiratory Distress Cardiovascular: No Edema, Normal Peripheral Pulses, Tachycardia Gastrointestinal: Normal Bowel Sounds, Non Tender, Soft; No Distended, No Guarding Back: Normal Inspection, No CVA Tenderness, No Vertebral Tenderness Extremity: Normal Capillary Refill, Normal Inspection, Normal Range of Motion, Non Tender, No Calf Tenderness, No Pedal Edema Neurologic/Psychiatric: Alert, No Motor/Sensory Deficits, Normal 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, 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 as 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, Disoriented Skin: Normal Color, Warm/Dry, Rash (Macular nonblanching rash throughout her extremities, neck, forehead, Nikolsky negative) Lymphatic: No Adenopathy Focused Exam Sepsis Stage: Severe Sepsis Possible Source: Unknown Lactate Level 06/06/21 22:45: Lactic Acid Level 2.27*H Time of Focused Exam: 22:30 Respiratory: Chest Non Tender, Lungs Clear, Normal Breath Sounds, No Accessory Muscle Use, No Respiratory Distress Cardiovascular: Regular Rate, Rhythm, No Edema, Normal Peripheral Pulses Capillary Refill: Less Than 3 Seconds Peripheral Pulses: 2+ Radial Pulses (R), 2+ Radial Pulses (L) Skin: normal color, warm/dry Lactic Acid Level Laboratory Tests Test 06/06/21 22:45 Lactic Acid Level 2.27 MMOL/L (0.50-2.00) *H Within 3hrs of presentation: Admin fluids (patient appeared euvolemic after 1 liter of IV fluids and heart rate improved, held off on more fluids given potential for harm), Admin ABX, Blood cultures prior to ABX's, Focus exam, Lactate level Progress/Results/Core Measures Suspected Sepsis SIRS Temperature: Pulse: Respiratory Rate: Laboratory Tests 06/06/21 21:30: White Blood Count 2.3L Blood Pressure / Mean: 06/06/21 22:45: Lactic Acid Level 2.27*H Laboratory Tests 06/06/21 21:30: Creatinine 0.55L, Platelet Count 231, Total Bilirubin 0.3 Results/Orders Lab Results Laboratory Tests Test 06/06/21 21:30 06/06/21 21:34 06/06/21 21:55 06/06/21 22:40 Range/Units White Blood Count 2.3 L 4.3-11.0 10^3/uL Red Blood Count 3.62 L 3.80-5.11 10^6/uL Hemoglobin 9.4 L 11.5-16.0 g/dL Hematocrit 30 L 35-52 % Mean Corpuscular Volume 83 80-99 fL Mean Corpuscular Hemoglobin 26 25-34 pg Mean Corpuscular Hemoglobin Concent 31 L 32-36 g/dL Red Cell Distribution Width 19.3 H 10.0-14.5 % Platelet Count 231 130-400 10^3/uL Mean Platelet Volume 9.1 9.0-12.2 fL Immature Granulocyte % (Auto) 1 % Neutrophils (%) (Auto) 74 42-75 % Lymphocytes (%) (Auto) 15 12-44 % Monocytes (%) (Auto) 10 0-12 % Eosinophils (%) (Auto) 0 0-10 % Basophils (%) (Auto) 0 0-10 % Neutrophils # (Auto) 1.7 L 1.8-7.8 10^3/uL Lymphocytes # (Auto) 0.3 L 1.0-4.0 10^3/uL Monocytes # (Auto) 0.2 0.0-1.0 10^3/uL Eosinophils # (Auto) 0.0 0.0-0.3 10^3/uL Basophils # (Auto) 0.0 0.0-0.1 10^3/uL Immature Granulocyte # (Auto) 0.0 0.0-0.1 10^3/uL Sodium Level 121 *L 135-145 MMOL/L Potassium Level 5.0 3.6-5.0 MMOL/L Chloride Level 91 L 98-107 MMOL/L Carbon Dioxide Level 19 L 21-32 MMOL/L Anion Gap 11 5-14 MMOL/L Blood Urea Nitrogen 10 7-18 MG/DL Creatinine 0.55 L 0.60-1.30 MG/DL Estimat Glomerular Filtration Rate 107 BUN/Creatinine Ratio 18 Glucose Level 278 H 70-105 MG/DL Calcium Level 7.8 L 8.5-10.1 MG/DL Corrected Calcium 9.0 8.5-10.1 MG/DL Total Bilirubin 0.3 0.1-1.0 MG/DL Aspartate Amino Transf (AST/SGOT) 34 5-34 U/L Alanine Aminotransferase (ALT/SGPT) 9 0-55 U/L Alkaline Phosphatase 125 40-136 U/L Total Protein 6.3 L 6.4-8.2 GM/DL Albumin 2.5 L 3.2-4.5 GM/DL Glucometer 258 H 70-110 MG/DL Urine Color YELLOW Urine Clarity SL CLOUDY Urine pH 6.0 5-9 Urine Specific Clarissa >=1.030 1.016-1.022 Urine Protein 1+ H NEGATIVE Urine Glucose (UA) 2+ H NEGATIVE Urine Ketones NEGATIVE NEGATIVE Urine Nitrite NEGATIVE NEGATIVE Urine Bilirubin NEGATIVE NEGATIVE Urine Urobilinogen 0.2 < = 1.0 MG/DL Urine Leukocyte Esterase TRACE H NEGATIVE Urine RBC (Auto) NEGATIVE NEGATIVE Urine RBC NONE /HPF Urine WBC 5-10 H /HPF Urine Squamous Epithelial Cells 5-10 /HPF Urine Crystals NONE /LPF Urine Bacteria TRACE /HPF Urine Casts PRESENT /LPF Urine Granular Casts RARE /LPF Urine Mucus NEGATIVE /LPF Urine Culture Indicated YES Influenza Type A Antigen NEGATIVE NEGATIVE Influenza Type B Antigen NEGATIVE NEGATIVE Test 06/06/21 22:45 Range/Units Lactic Acid Level 2.27 *H 0.50-2.00 MMOL/L My Orders Orders - CAMILA DE SANTIAGO MD Cbc With Automated Diff (06/06/21 21:37) Comprehensive Metabolic Panel (06/06/21 21:37) Ua Culture If Indicated (06/06/21 21:37) Chest 1 View Ap/Pa Only (06/06/21 21:37) Blood Culture (06/06/21 22:07) Acetaminophen Tablet (Tylenol Tablet) (06/06/21 22:15) Lactic Acid Analyzer (06/06/21 22:07) Ns Iv 1000 Ml (Sodium Chloride 0.9%) (06/06/21 22:15) Cefepime Injection (Maxipime Injection) (06/06/21 22:15) Ct Head Wo (06/06/21 22:07) Urine Culture (06/06/21 21:55) Influenza A & B Antigens (06/06/21 23:33) Medications Given in ED Current Medications Medications Dose Ordered Sig/Froilan Route Start Time Stop Time Status Last Admin Dose Admin Acetaminophen 1,000 mg ONCE PRN PO 06/06/21 22:15 06/06/21 22:24 DC 06/06/21 22:23 1,000 MG Cefepime HCl 1000 mg/Sodium Chloride 50 ml @ 100 mls/hr ONCE ONCE IV 06/06/21 22:15 06/06/21 22:44 DC 06/06/21 22:50 100 MLS/HR Vital Signs/I&O 06/06/21 06/06/21 06/06/21 21:18 22:09 23:20 Temp 38.4 37.9 Pulse 133 115 102 Resp 18 15 B/P (MAP) 131/81 (98) 129/80 Pulse Ox 100 98 O2 Delivery Room Air Room Air Capillary Refill : Progress Note : Progress Note 55-year-old female with above history coming in due to confusion. ABCs were intact and vitals were stable on presentation although she has febrile and tachycardic. An IV was placed and basic labs were obtained including blood cultures and lactic acid. She was given broad-spectrum antibiotics and a bolus of IV fluids. Blood sugar on fingerstick was over 200 after the gave her juice and fed her. Unsure what it was prior because he did not check it. Sodium low today at 121 it was greater than 130 over a week ago which certainly could be adding to her confusion. Unclear of any infectious etiology so we will bring her in to the hospital especially due to her new hyponatremia. Gave 1 liter IV fluids with the antibiotics. She appeared euvolemic after with improvement in heart rate, held off on further fluids for now given possibility of harm. Discussed the case with Dr. Cardona who will admit her under inpatient status. Diagnostic Imaging Diagonstic Imaging: Xray (chest), CT (head) [facility] [place], [place] NAME: CHLOE BUSH MED REC#: [id number] PT STATUS: REG ER : 1965 PHYSICIAN: CAMILA DE SANTIAGO MD ADMIT DATE: 06/06/21/ER FS Signed Date of Exam:06/06/21 CHEST 1 VIEW AP/PA ONLY PATIENT HISTORY: Confusion. Altered mental status. TECHNIQUE: Single frontal view of the chest. COMPARISON: 11/27/2018. FINDINGS: The lung volumes are normal. No focal consolidation is seen. No large pleural effusion or pneumothorax is seen. The cardiomediastinal silhouette is normal in size and contour. No acute osseous abnormality is seen. Cholecystectomy clips are noted. IMPRESSION: No acute pulmonary abnormality seen. Dictated by: Dictated on workstation # [id number] Dict: 06/06/212155 Trans: 06/06/212208 [facility] [id number] Interpreted by: LAWANDA VILLARREAL MD Electronically signed by: LAWANDA VILLARREAL MD 06/06/212208 [facility] NAME: CHLOE BUSH MED REC#: [id number] PT STATUS: REG ER : 1965 PHYSICIAN: CAMILA DE SANTIAGO MD ADMIT DATE: 06/06/21/ER FS Signed Date of Exam:06/06/21 CT HEAD WO PROCEDURE: CT head without contrast. TECHNIQUE: Multiple contiguous axial images were obtained through the brain without the use of intravenous contrast. Auto Exposure Controls were utilized during the CT exam to meet ALARA standards for radiation dose reduction. INDICATION: Altered mental status. COMPARISON: None. FINDINGS: Ventricles and cortical sulci are age-appropriate. There is no midline shift or mass effect. No acute intracranial hemorrhage is seen. There is no CT evidence of acute territorial ischemia. There is motion artifact on multiple images. The calvarium appears to be intact. There is mucosal thickening and a fluid level in the left sphenoid sinus. IMPRESSION: 1. No acute intracranial hemorrhage or CT evidence of acute territorial ischemia. 2. Left sphenoid sinus disease. Dictated by: Dictated on workstation # [id number] Dict: 06/06/212235 Trans: 06/06/21 230 [facility] [id number] Interpreted by: LAWANDA VILLARREAL MD Electronically signed by: LAWANDA VILLARREAL MD 06/06/21 2305 Departure Impression Primary Impression: Hyponatremia Additional Impressions: Severe sepsis Confusion Disposition: 30 STILL A PATIENT Condition: Stable Admissions Decision to Admit Reason: Admit from ER (General) Decision to Admit/Date: Jun 06, 2021 Time/Decision to Admit Time: 22:10 Transfer Method of Transfer: EMS Departure-Patient Inst. Referrals: ALEC MITCHELL APRN (PCP) Primary Care Physician CAMILA DE SANTIAGO MD Jun 06, 2021 21:50
--- NOTE | 2021-06-06 21:58 | Diagnostic Imaging Report ---
PATIENT HISTORY: Confusion. Altered mental status. TECHNIQUE: Single frontal view of the chest. COMPARISON: 11/27/2018. FINDINGS: The lung volumes are normal. No focal consolidation is seen. No large pleural effusion or pneumothorax is seen. The cardiomediastinal silhouette is normal in size and contour. No acute osseous abnormality is seen. Cholecystectomy clips are noted. IMPRESSION: No acute pulmonary abnormality seen. Dictated by: Dictated on workstation # [id number]
[2021-06-06 22:00] LABS: BILIRUBIN,URINE NEGATIVE (NEGATIVE); CLARITY,URINE SL CLOUDY; COLOR,URINE YELLOW; GLUCOSE, URINE (UA) 2+ (NEGATIVE); KETONES,URINE NEGATIVE (NEGATIVE); LEUKOCYTE ESTERASE ,URINE TRACE (NEGATIVE); NITRITE,URINE NEGATIVE (NEGATIVE); PROTEIN,URINE 1+ (NEGATIVE)
[2021-06-06 22:03] LABS: BILIRUBIN,TOTAL 0.3 MG/DL (0.1-1.0); CALCIUM 7.8 MG/DL (8.5-10.1); CREATININE SERUM 0.55 MG/DL (0.60-1.30); TOTAL PROTEIN 6.3 GM/DL (6.4-8.2)
[2021-06-06 22:04] LABS: ALBUMIN 2.5 GM/DL (3.2-4.5)
[2021-06-06 22:12] LABS: BACTERIA,URINE TRACE /HPF
[2021-06-06 22:13] LABS: GRANULAR CASTS,URINE RARE /LPF
[2021-06-06] MEDS ORDERED: CEFEPIME INJECTION 1,000 MG in NS (IVPB) 50 ML IV ONE (22:15)
[2021-06-06] MEDS ORDERED: ACETAMINOPHEN 500 MG TAB (TYLENOL) PO PRN (22:15)
[2021-06-06] MEDS ORDERED: NS IV 1000 ML 1,000 ML IV SCH (22:15)
--- NOTE | 2021-06-06 22:42 | Diagnostic Imaging Report ---
PROCEDURE: CT head without contrast. TECHNIQUE: Multiple contiguous axial images were obtained through the brain without the use of intravenous contrast. Auto Exposure Controls were utilized during the CT exam to meet ALARA standards for radiation dose reduction. INDICATION: Altered mental status. COMPARISON: None. FINDINGS: Ventricles and cortical sulci are age-appropriate. There is no midline shift or mass effect. No acute intracranial hemorrhage is seen. There is no CT evidence of acute territorial ischemia. There is motion artifact on multiple images. The calvarium appears to be intact. There is mucosal thickening and a fluid level in the left sphenoid sinus. IMPRESSION: 1. No acute intracranial hemorrhage or CT evidence of acute territorial ischemia. 2. Left sphenoid sinus disease. Dictated by: Dictated on workstation # [id number]
[2021-06-07] VITALS (7 sets, daily range): BP systolic 102–137; BP diastolic 60–81
[2021-06-07] MEDS ORDERED: RT-ALBUTEROL SULF 2.5 MG/3 ML PRE-MIX VIAL INH PRN (00:45)
[2021-06-07] MEDS ORDERED: ONDANSETRON 4 MG/2 ML (SDV) Z0FRAN IV PRN (01:00)
[2021-06-07] MEDS ORDERED: ACETAMINOPHEN 500 MG TAB (TYLENOL) PO PRN ×2 (01:00→11:45)
[2021-06-07] MEDS: CEFEPIME 1,000 MG/NS 50 ML IVPB IV SCH ×8 (04:27→20:46)
[2021-06-07 05:34] LABS: BASOPHILS % (AUTO) 1 % (0-10); EOSINOPHILS % (AUTO) 1 % (0-10); HEMATOCRIT 26 % (35-52); HEMOGLOBIN 8.2 g/dL (11.5-16.0); LYMPHOCYTES # (AUTO) 0.4 10^3/uL (1.0-4.0); LYMPHOCYTES % (AUTO) 20 % (12-44); MEAN CORPUSCULAR HEMOGLOBIN 26 pg (25-34); MEAN CORPUSCULAR HGB CONC 32 g/dL (32-36); MEAN CORPUSCULAR VOLUME 81 fL (80-99); MEAN PLATELET VOLUME 9.6 fL (9.0-12.2); MONOCYTES # (AUTO) 0.2 10^3/uL (0.0-1.0); MONOCYTES % (AUTO) 10 % (0-12); NEUTROPHILS # (AUTO) 1.3 10^3/uL (1.8-7.8); NEUTROPHILS % (AUTO) 69 % (42-75); PLATELET COUNT 193 10^3/uL (130-400); WHITE BLOOD COUNT 1.8 10^3/uL (4.3-11.0)
[2021-06-07 05:45] LABS: POTASSIUM 3.9 MMOL/L (3.6-5.0)
[2021-06-07 05:47] LABS: CALCIUM 7.3 MG/DL (8.5-10.1)
[2021-06-07] MEDS: CATHETER FLUSH 10 ML SYR IVP SCH ×3 (05:49→20:46)
[2021-06-07] MEDS: inSUlin ASPART (NovoLOG) 1 UNIT/0.01 ML (CHARGE PER UNIT) SC SCH ×4 (05:49→20:41)
[2021-06-07 05:51] LABS: CREATININE SERUM 0.71 MG/DL (0.60-1.30)
[2021-06-07] MEDS: LEVOTHYROXINE 100 MCG (LEVOTHROID) TAB PO SCH (06:14)
[2021-06-07] MEDS: FOLIC ACID 1 MG TAB PO SCH (08:18)
[2021-06-07] MEDS ORDERED: FOLI1TAB33 PO (11:12)
[2021-06-07] MEDS ORDERED: CELE-63 PO (11:12)
[2021-06-07] MEDS ORDERED: NON-FORMULARY MEDICATION 1 EA EA (Aspirin/Acetaminophen/Caffeine (Excedrin Migraine Caplet PO PRN (11:15)
[2021-06-07] MEDS ORDERED: DOCUSATE SODIUM 100 MG (COLACE) CAP PO PRN (11:15)
[2021-06-07] MEDS ORDERED: ASPIRIN 325 MG (5 GR) TABLET PO PRN (11:30)
--- NOTE | 2021-06-07 13:31 | Occupational Therapy Eval ---
OT Evaluation-General/PLF Medical Diagnosis Admission Date Jun 07, 2021 at 00:03 Medical Diagnosis: severe sepsis, hyponatremia Onset Date: Jun 06, 2021 Therapy Diagnosis Therapy Diagnosis: n/a Precautions Precautions/Isolations: Standard Precautions, Pressure Ulcer Referral Physician: Stefan Jade Reason: Evaluation/Treatment Medical History Pertinent Medical History: DM, Rheumatoid Arthritis Additional Medical History DM, RA, mehtotrexate toxicity Current History ED due to family report of pt not acting right Social History Home: Single Level Current Living Status: Spouse ADL-Prior Level of Function SCALE: Activities may be completed with or without assistive devices. 2-Yotiwraaav-zzhnvpq completes the activity by him/herself with no assistance from a helper. 5-Set-up or Clean-up Assistance-helper sets up or cleans up; patient completes activity. [place] assists only prior to or following the activity. 4-Supervision or Touching Assistance-helper provides verbal cues and/or touching/steadying and/or contact guard assistance as patient completes activity. Assistance may be provided throughout the activity or intermittently. 3-Partial/Moderate Assistance-helper does LESS THAN HALF the effort. [place] lifts, holds or supports trunk or limbs, but provides less than half the effort. 2-Substantial/Maximal Assistance-helper does MORE THAN HALF the effort. [place] lifts or holds trunk or limbs and provides more than half the effort. 9-Ydvyhikne-ibekta does ALL the effort. Patient does none of the effort to complete the activity. Or, the assistance of 2 or more helpers is required for the patient to complete the activity. If activity was not attempted, code reason: 7-Patient Refused. 9-Not Applicable-not attempted and the patient did not perform the activity before the current illness, exacerbation or injury. 10-Not Attempted due to Environmental Limitations-(lack of equipment, weather restraints, etc.). 88-Not Attempted due to Medical Conditions or Safety Concerns. ADL PLOF Comments Pt reports IND with all ADLs at PLOF except showering, assists with this. Pt was independent with functional mobility, no AD. She has a tub/shower, no SC. Self Care: Needed Some Help Functional Cognition: Independent DME/Equipment: Tub/Shower OT Current Status Subjective pt in bed, agreeable to OT Tx. Pt reports no concerns with her ability to complete ADLs, and feels like she is at her PLOF with self care tasks Mental Status/Objective Patient Orientation: Person, Place, Time, Situation Attachments: Telemetry Current Upper Extremity ROM WFL Upper Extremity Coordination WFL Upper Extremity Strength grossly 3+/5 ADL-Treatment Eating (QC): 6 Oral Hygiene (QC): 6 (per clinical judgment.) Toileting Hygiene (QC): 6 (Per pt report, able to manage hygiene and clothing management.) Other Treatments Pt in bed, agreeable to OT tx. Pt transferred supine to sit EOB independently, then performed functional mobility around her room, no AD, with supervision. Pt transferred to recliner. Pt reports she is at her PLOF with ADLs, has no concerns with LB dressing or footwear and she has been able to complete toileting without issues. OT educated pt on benefit of SC vs bath bench, pt verbalizes understanding. Pt declines further skilled OT services at this time, due to being at PLOF with self care tasks. Post tx, pt in recliner, call light in reach and all needs met. Education OT Patient Education: Correct positioning, Energy conservation, Modified ADL techniques, Progress toward Goal/Update tx plan, Purpose of tx/functional activities, Rehab process Teaching Recipient: Patient Teaching Methods: Discussion Response to Teaching: Verbalize Understanding OT Hat Blocking Machine Operator Goals Alf Goals 1=Demonstrate adherence to instructed precautions during ADL tasks. 2=Patient will verbalize/demonstrate understanding of assistive devices/mod ifications for ADL. 3=Patient will improve strength/tolerance for activity to enable patient to perform ADL's. OT Education/Plan Problem List/Assessment Assessment: No Skilled OT Needs ID'd No skilled OT services indicated at this time, as pt is at PLOF and independent with ADLs, d/c from OT. Discharge Recommendations Plan/Recommendations: Discharge/Goals Met Treatment Plan/Plan of Care Patient would benefit from OT for education, treatment and training to promote independence in ADL's, mobility, safety and/or upper extremity function for ADL's. Plan of Care: ADL Retraining, Functional Mobility Treatment Duration: Jun 07, 2021 Frequency: 1 time per week (eval only) Estimated Hrs Per Day: .25 hour per day Agreement: Yes Rehab Potential: Good Time/GCodes Start Time: 13:10 Stop Time: 13:22 Total Time Billed (hr/min): 12 Billed Treatment Time 1, EVL CRUMPACKER,CHELSEA OT Jun 07, 2021 13:31
--- NOTE | 2021-06-07 14:07 | Physical Therapy Evaluation ---
PT Evaluation-General Medical Diagnosis Admission Date Jun 07, 2021 at 00:03 Medical Diagnosis: severe sepsis, hyponatremia Onset Date: Jun 06, 2021 Therapy Diagnosis Therapy Diagnosis: debility Precautions Precautions/Isolations: Standard Precautions, Pressure Ulcer Referral Physician: Stefan Reason for Referral: Evaluation/Treatment Medical History Pertinent Medical History: DM, Rheumatoid Arthritis Current History ER secondary to glucose issues Reviewed History: Yes Social History Home: Single Level Current Living Status: Spouse Prior Prior Level of Function SCALE: Activities may be completed with or without assistive devices. 1-Qfkxqoxmtj-erugpyn completes the activity by him/herself with no assistance from a helper. 5-Set-up or Clean-up Assistance-helper sets up or cleans up; patient completes activity. [place] assists only prior to or following the activity. 4-Supervision or Touching Assistance-helper provides verbal cues and/or touching/steadying and/or contact guard assistance as patient completes activity. Assistance may be provided throughout the activity or intermittently. 3-Partial/Moderate Assistance-helper does LESS THAN HALF the effort. [place] lifts, holds or supports trunk or limbs, but provides less than half the effort. 2-Substantial/Maximal Assistance-helper does MORE THAN HALF the effort. [place] lifts or holds trunk or limbs and provides more than half the effort. 7-Tgrzmsfoj-zzsfve does ALL the effort. Patient does none of the effort to complete the activity. Or, the assistance of 2 or more helpers is required for the patient to complete the activity. If activity was not attempted, code reason: 7-Patient Refused. 9-Not Applicable-not attempted and the patient did not perform the activity before the current illness, exacerbation or injury. 10-Not Attempted due to Environmental Limitations-(lack of equipment, weather restraints, etc.). 88-Not Attempted due to Medical Conditions or Safety Concerns. Bed Mobility: 6 Transfers (B,C,W/C): 6 Gait: 6 Stairs: 6 Indoor Mobility (Ambulation): Independent Stairs: Independent Prior Devices Use: None PT Evaluation-Current Subjective Patient agrees to PT. No c/o at this time. Objective Patient Orientation: Normal For Age ROM/Strength ROM Lower Extremities bilateral LE WFL Strength Lower Extremities 3+/5 grossly bilateral LE Integumentary/Posture Integumentary refer to nursing notes Bowel Incontinence: No Bladder Incontinence: No Posture slightly kyphotic Neuromuscular (Tone, Coordination, Reflexes) grossly intact Sensory Vision: Wears Glasses Hearing: Functional Transfers Roll Left to Right (QC): 6 Sit to Lying (QC): 6 Lying to Sitting/Side of Bed(Q: 6 Sit to Stand (QC): 4 Chair/Wrk-of-Xvqpn Xfer(QC): 4 Gait Does the Patient Walk?: Yes Mode of Locomotion: Walk Anticipated Mode of Locomotion: Walk Walk 10 feet (QC): 4 Walk 50 ft with 2 Turns(QC): 4 Walk 150 ft (QC): 4 Distance: 500' Gait Assistive Device: FWW Comments/Gait Description slightly unsteady with self correct Balance Sitting Static: Normal Sitting Dynamic: Normal Standing Static: Fair Standing Dynamic: Fair Assessment/Needs 55 y.o. female, will be seen short term by skilled PT to address functional strength and mobility to ensure safer return to home at maximum LOF. Rehab Potential: Fair Post Rehab Potential-Barriers: compliance PT Alf Goals Car Conditioner Goals PT Car Conditioner Goals Time Frame: Jun 16, 2021 Roll Left & Right (QC): 6 Sit to Lying (QC): 6 Lying-Sitting on Side/Bed(QC): 6 Sit to Stand (QC): 6 Chair/Ylx-ad-Rnqjf Xfer(QC): 6 Toilet Transfer (QC): 6 Walk 10 feet (QC): 6 Walk 50ft with 2 Turns (QC): 6 Walk 150 ft (QC): 6 PT Plan Problem List Problem List: Activity Tolerance, Functional Strength, Safety, Balance, Gait, Transfer Treatment/Plan Treatment Plan: Continue Plan of Care Treatment Plan: Education, Functional Activity Daniela, Functional Strength, Gait, Safety, Therapeutic Exercise, Transfers Treatment Duration: Jun 16, 2021 Frequency: 6 times per week Estimated Hrs Per Day: .25 hour per day Patient and/or Family Agrees t: Yes Time/GCodes Time In: 1340 Time Out: 1350 Total Billed Treatment Time: 10 Total Billed Treatment 1 visit EVLow 10 min NAVEEN ORTIZ PT Jun 07, 2021 14:06
--- NOTE | 2021-06-07 14:26 | History & Physical-Hospitalist ---
ELLIOTT MCALLISTER 06/07/21 1426: History of Present Illness HPI/Chief Complaint CC: fluctuating blood sugars HPI: The patient is a 55 YO female with a history of DM type 2, RA, and a partial thyroid resection, who presented to the ED in [place] yesterday due to fluctuating blood sugars. PT reports that her found her slumped in a chair yesterday around 2pm. She was then given some fruit juice which helped her recover from this episode. PT presented to the ED after this event, and was Dx with severe sepsis and hyponatremia before being admitted. PT has a history of methotrexate toxicity about 1 week ago, which resulted in DC of the medication. She reports that she did have a fever of 101 F yesterday in the ED. Today the patient is feeling better. She did not appear to be in acute distress. She reports that she takes Macrobid daily suppressive therapy for UTI prevention. She is currently on Cefepime. Date Seen 06/07/21 Time Seen by a Provider: 09:45 Attending Physician Hannah Aviles DO PCP Ursula Perkins Aprn Referring Physician Date of Admission Jun 07, 2021 at 00:03 Home Medications & Allergies Home Medications Reviewed patient Home Medication Reconciliation performed by pharmacy medication reconciliations automotive maintenance technician and/or nursing. Patients Allergies have been reviewed. Allergies Allergies Coded Allergies amoxicillin (Verified Allergy, Unknown, Rash, 02/13/21) Past Qbqivtr-Xmuimc-Gxnnfv Hx Patient Social History Tobacco Use?: No Use of E-Cig and/or Vaping dev: No Substance use?: No Alcohol Use?: No Pt feels they are or have been: No Immunizations Up To Date First/Initial COVID19 Vaccinat: Moderna July 21 Second COVID19 Vaccination Ziyad: ModernAugust 21 Tetanus Booster (TDap): Less Than 5 Years Current Status status: No status: No Advance Directives: No Communicates: Verbally Primary Language: Cambodian Preferred Spoken Language: Cambodian Is interpretation needed?: No Sensory deficits: Vision impairment Implanted or Applied Medical D: None Past Medical History Surgeries: Section, Gallbladder, Hysterectomy, Thyroidectomy, Tubal Ligation Headaches /Migraines UTI-Chronic Rheumatoid Arthritis Diabetes, Insulin dep Adverse Reaction/Blood Tranf: No PMHx: Diabetes Rheumatoid arthritis Hypothyroidism SurgHx: Partial thyroidectomy- benign Hysterectomy Cholecystectomy Tubal ligation Family Medical History Cancer Review of Systems Constitutional: No chills, No fever (none currently) EENTM: No double vision, No vision loss Respiratory: cough; No short of breath Cardiovascular: No chest pain, No palpitations Gastrointestinal: No constipation, No diarrhea Genitourinary: No dysuria, No hematuria Musculoskeletal: No muscle twitching, No muscle weakness Skin: No lesions, No lumps Psychiatric/Neurological: Denies Anxiety, Denies Depressed Physical Exam Physical Exam Vital Signs Vital Signs - First Documented 06/06/21 06/07/21 21:18 00:36 Temp 38.4 Pulse 133 Resp 18 B/P (MAP) 131/81 (98) Pulse Ox 100 O2 Delivery Room Air FiO2 21 Capillary Refill : Less Than 3 Seconds Height, Weight, BMI Height: '" Weight: lbs. oz. kg; 20.57 BMI Method: General Appearance: No Apparent Distress Eyes: Bilateral Eye Normal Inspection, Bilateral Eye PERRL, Bilateral Eye EOMI HEENT: PERRL/EOMI, Pharynx Normal, Moist Mucous Membranes Neck: Full Range of Motion, Normal Inspection Respiratory: Chest Non Tender, Lungs Clear, Normal Breath Sounds, No Accessory Muscle Use, No Respiratory Distress Cardiovascular: Regular Rate, Rhythm, No Edema, No Gallop, No JVD, No Murmur, Normal Peripheral Pulses Gastrointestinal: Normal Bowel Sounds, No Organomegaly, No Pulsatile Mass, Non Tender, Soft Extremity: Normal Inspection, Normal Range of Motion, No Calf Tenderness Neurologic/Psychiatric: Alert, Oriented x3, No Motor/Sensory Deficits, Normal Mood/Affect Skin: Normal Color, Warm/Dry Lymphatic: No Adenopathy Results Results/Procedures Labs Laboratory Tests 06/06/21 21:30 06/07/21 05:00 Patient resulted labs reviewed. Assessment/Plan Admission Diagnosis Acute altered mental status Assessment and Plan Assessment: Acute altered mental status found down Severe hyponatremia Suspected sepsis, secondary to likely UTI Daily supressive Macrobid therapy for UTI prevention Neutropenia Plan: Acute altered mental status found down Severe hyponatremia Suspected sepsis, secondary to likely UTI Daily supressive Macrobid therapy for UTI prevention Neutropenia Patient will continue on cefepime therapy. Her likely source of infection was a UTI, which resulted in a suspected sepsis due to her low neutrophil count. Hyponatremia is stabilized at this time. PT will likely be able to be DC tomorrow. HANNAH AVILES DO 06/08/21 0519: History of Present Illness HPI/Chief Complaint Chief complaint: Altered mental status History of present illness: This is a 55-year-old white female who presented to the ER with altered mental status was found to be hypoglycemic and hyponatremic and have elevated lactic acid. IV fluids were initiated along with empiric antibiotics. Patient feels much better today. Source: patient Past Govybrj-Dwjixa-Djfius Hx Patient Social History Marrital Status: Employed/Student: unemployed Smoking Status: Never a Smoker Past Medical History Kidney Infection, Bladder Infection Rheumatoid Arthritis Review of Systems Constitutional: see HPI, dizziness, weakness EENTM: no symptoms reported Respiratory: no symptoms reported Cardiovascular: no symptoms reported Musculoskeletal: no symptoms reported Skin: no symptoms reported Physical Exam Physical Exam General Appearance: No Apparent Distress, Chronically ill Respiratory: Lungs Clear, Normal Breath Sounds Cardiovascular: Regular Rate, Rhythm Neurologic/Psychiatric: Alert, Oriented x3 Assessment/Plan Admission Diagnosis Altered mental status Hypoglycemia Hyponatremia Recent methotrexate toxicity Pancytopenia improved Neutropenia UTI acute on chronic Hypothyroidism Plan: Cefepime Supportive care Admission Status: Inpatient Order (span 2 midnights) Reason for Inpatient Admission: Sepsis with hyponatremia Supervisory-Addendum Brief Verification & Attestation Participated in pt care: history, MDM, physical Personally performed: exam, history, MDM, supervision of care Care discussed with: Medical Student Procedures: n/a Results interpretation: Verified all documentation Verification and Attestation of Medical Student E/M Service A medical student performed and documented this service in my presence. I reviewed and verified all information documented by the medical student and made modifications to such information, when appropriate. I personally performed the physical exam and medical decision making. Hannah Aviles, Jun 08, 2021,05:19 ELLIOTT MCALLISTER Jun 07, 2021 14:26 HANNAH AVILES DO Jun 08, 2021 05:19
[2021-06-08 03:29] VITALS: BP 106/62
[2021-06-08] MEDS: CEFEPIME 1,000 MG/NS 50 ML IVPB IV SCH ×4 (03:46→08:53)
[2021-06-08] MEDS: inSUlin ASPART (NovoLOG) 1 UNIT/0.01 ML (CHARGE PER UNIT) SC SCH ×2 (05:59→11:15)
[2021-06-08] MEDS: CATHETER FLUSH 10 ML SYR IVP SCH (06:12)
[2021-06-08] MEDS: LEVOTHYROXINE 100 MCG (LEVOTHROID) TAB PO SCH (06:12)
[2021-06-08 06:59] LABS: BASOPHILS % (AUTO) 1 % (0-10); EOSINOPHILS % (AUTO) 2 % (0-10); HEMATOCRIT 28 % (35-52); HEMOGLOBIN 8.9 g/dL (11.5-16.0); LYMPHOCYTES # (AUTO) 0.3 10^3/uL (1.0-4.0); LYMPHOCYTES % (AUTO) 21 % (12-44); MEAN CORPUSCULAR HEMOGLOBIN 26 pg (25-34); MEAN CORPUSCULAR HGB CONC 32 g/dL (32-36); MEAN CORPUSCULAR VOLUME 82 fL (80-99); MEAN PLATELET VOLUME 9.7 fL (9.0-12.2); MONOCYTES # (AUTO) 0.2 10^3/uL (0.0-1.0); MONOCYTES % (AUTO) 10 % (0-12); NEUTROPHILS % (AUTO) 64 % (42-75); PLATELET COUNT 201 10^3/uL (130-400); WHITE BLOOD COUNT 1.5 10^3/uL (4.3-11.0)
[2021-06-08 07:11] LABS: ALBUMIN 2.4 GM/DL (3.2-4.5)
[2021-06-08 07:12] LABS: POTASSIUM 4.1 MMOL/L (3.6-5.0)
[2021-06-08 07:13] LABS: CALCIUM 7.8 MG/DL (8.5-10.1)
[2021-06-08 07:14] LABS: TOTAL PROTEIN 5.5 GM/DL (6.4-8.2)
[2021-06-08 07:16] LABS: BILIRUBIN,TOTAL 0.3 MG/DL (0.1-1.0)
[2021-06-08 07:18] LABS: CREATININE SERUM 0.78 MG/DL (0.60-1.30)
[2021-06-08 07:30] VITALS: BP 129/68
[2021-06-08] MEDS: FOLIC ACID 1 MG TAB PO SCH (08:17)
[2021-06-08] MEDS ORDERED: NON-FORMULARY MEDICATION 1 EA EA (Celecoxib 200 MG) PO SCH (09:00)
[2021-06-08] MEDS ORDERED: LEVOTHYROXINE 100 MCG (LEVOTHROID) TAB PO SCH (09:00)
[2021-06-08] MEDS ORDERED: OMEPRAZOLE 20 MG (PriLOSEC) CAP NON-FORMULARY PO SCH (09:00)
[2021-06-08] MEDS ORDERED: PANTOPRAZOLE 20 MG TABLET (PROTONIX) PO SCH (09:00)
[2021-06-08] MEDS ORDERED: CELECOXIB 100 MG (CeleBREX) CAP PO SCH (09:00)
[2021-06-08] MEDS ORDERED: FOLIC ACID 1 MG TAB PO SCH (09:00)
--- NOTE | 2021-06-08 09:23 | Physical Therapy Daily Note ---
PT Daily Note-Current Subjective Upon arrival, pt was laying in bed, RN was present. Pt states she didn't get much sleep. Pt agrees to PT. Mental Status Patient Orientation: Normal For Age Transfers SCALE: Activities may be completed with or without assistive devices. 4-Rsaxyxakoh-eyjrrjt completes the activity by him/herself with no assistance from a helper. 5-Set-up or Clean-up Assistance-helper sets up or cleans up; patient completes activity. Aguilar assists only prior to or following the activity. 4-Supervision or Touching Assistance-helper provides verbal cues and/or touching/steadying and/or contact guard assistance as patient completes activity. Assistance may be provided throughout the activity or intermittently. 3-Partial/Moderate Assistance-helper does LESS THAN HALF the effort. Aguilar lifts, holds or supports trunk or limbs, but provides less than half the effort. 2-Substantial/Maximal Assistance-helper does MORE THAN HALF the effort. Aguilar lifts or holds trunk or limbs and provides more than half the effort. 7-Ckgimwkro-amxltv does ALL the effort. Patient does none of the effort to complete the activity. Or, the assistance of 2 or more helpers is required for the patient to complete the activity. If activity was not attempted, code reason: 7-Patient Refused. 9-Not Applicable-not attempted and the patient did not perform the activity before the current illness, exacerbation or injury. 10-Not Attempted due to Environmental Limitations-(lack of equipment, weather restraints, etc.). 88-Not Attempted due to Medical Conditions or Safety Concerns. Roll Left & Right (QC): 6 Sit to Lying (QC): 6 Lying to Sitting/Side of Bed(Q: 6 Sit to Stand (QC): 6 Gait Training Does the Patient Walk?: Yes Distance: 400' Walk 10 feet (QC): 6 Walk 50 ft with 2 Turns(QC): 6 Walk 150 ft (QC): 6 Gait Assistive Device: FWW Pt ambulates without LOB. Exercises Seated Therapy Exercises: Ankle pumps, Sit to stand (10), Long arc quads, Hip flexion, Hip abd/add Seated Reps: 20 Treatments Pt performed and completed all seated EXs as listed above. Pt tolerated tx very well. Assessment Current Status: Good Progress Patient is currently at independent [facility] with all gross motor skills safely. This SENIOR TAX ACCOUNTANT consulted with PT to dismiss patient from services. PT Jail Goals Jail Goals PT Molding Process Technician Goals Time Frame: Jun 16, 2021 Roll Left & Right (QC): 6 Sit to Lying (QC): 6 Lying-Sitting on Side/Bed(QC): 6 Sit to Stand (QC): 6 Chair/Xst-ti-Opvcc Xfer(QC): 6 Toilet Transfer (QC): 6 Walk 10 feet (QC): 6 Walk 50ft with 2 Turns (QC): 6 Walk 150 ft (QC): 6 PT Plan Treatment/Plan Treatment Plan: Discontinue PT, goals met Treatment Plan: Education, Functional Activity Daniela, Functional Strength, Gait, Safety, Therapeutic Exercise, Transfers Treatment Duration: Jun 16, 2021 Frequency: 6 times per week Estimated Hrs Per Day: .25 hour per day Patient and/or Family Agrees t: Yes Time/GCodes Time In: 815 Time Out: 835 Total Billed Treatment Time: 20 Total Billed Treatment 1, FA 20 GEORGE NAQVI PTA Jun 08, 2021 09:23
[2021-06-08 10:40] VITALS: BP 122/65
[2021-06-08] MEDS ORDERED: NITR100C10 PO (11:43)
[2021-06-08] MEDS ORDERED: INSU200I4 SC (11:43)
[2021-06-08] MEDS ORDERED: CEFD300C3 PO (11:43)
--- NOTE | 2021-06-08 11:44 | Discharge Summary ---
Discharge Summary Hospital Course Was the Problem List Reviewed?: Yes Problems/Dx: (1) Confusion Status: Acute (2) Hyponatremia Status: Acute (3) UTI (urinary tract infection) Qualifiers: Qualified Codes: N39.0 - Urinary tract infection, site not specified; R31.9 - Hematuria, unspecified Hospital Course Date of Admission: Jun 07, 2021 at 00:03 Admission Diagnosis : Family Physician/Provider: Ursula Perkins Manager Women Date of Discharge: 06/08/21 Discharge Diagnosis: Altered mental status, hyponatremia, hypoglycemia, UTI Hospital Course: Hospital Course: Miss Zepeda, a 55 yo F, presented to the ED due to uncontrolled blood sugar. She was admitted because she met the criteria for severe sepsis and also found to be severely hyponatremic. While in the hospital, she was started on IV antibiotics, due to a urinary tract infection. She regularly takes macrobid for chronic uti's but was unable to for the last week due to recent methotrexate toxicity. Katelyn continued to show signs of improvement on the antibiotics. The hyponatremia was corrected slowly. As of this morning, she is feeling so much better and is ready to go home. Pres[facility] for [facility]efdinir [facility]. Once she is done with the cefdinir course, she will be able to restart her daily macrobid. Pt will set up follow up appointment with her primary care, Dr. Espana. She is safe and stable to be discharged home today. MICHEL LYNCH MED STUDENT Labs and Pending Lab Test: Laboratory Tests 06/07/21 15:57: Glucometer 182H 06/07/21 20:41: Glucometer 163H 06/08/21 05:56: Glucometer 157H 06/08/21 06:56: White Blood Count 1.5L, Red Blood Count 3.39L, Hemoglobin 8.9L, Hematocrit 28L, Mean Corpuscular Volume 82, Mean Corpuscular Hemoglobin 26, Mean Corpuscular Hemoglobin Concent 32, Red Cell Distribution Width 19.1H, Platelet Count 201, Mean Platelet Volume 9.7, Immature Granulocyte % (Auto) 3, Neutrophils (%) (Auto) 64, Lymphocytes (%) (Auto) 21, Monocytes (%) (Auto) 10, Eosinophils (%) (Auto) 2, Basophils (%) (Auto) 1, Neutrophils # (Auto) 1.0L, Lymphocytes # (Auto) 0.3L, Monocytes # (Auto) 0.2, Eosinophils # (Auto) 0.0, Basophils # (Auto) 0.0, Immature Granulocyte # (Auto) 0.0, Sodium Level 129L, Potassium Level 4.1, Chloride Level 100, Carbon Dioxide Level 20L, Anion Gap 9, Blood Urea Nitrogen 9, Creatinine 0.78, Estimat Glomerular Filtration Rate 89, BUN/Cr eatinine Ratio 12, Glucose Level 151H, Calcium Level 7.8L, Corrected Calcium 9.1, Total Bilirubin 0.3, Aspartate Amino Transf (AST/SGOT) 22, Alanine Aminotransferase (ALT/SGPT) 9, Alkaline Phosphatase 111, Total Protein 5.5L, Albumin 2.4L 06/08/21 10:30: Glucometer 273H Microbiology 06/06/21 Blood Culture - Preliminary, Resulted No growth 06/06/21 Urine Culture - Preliminary, Resulted Strep agalactiae Group B See Comments Home Meds Active Cefdinir 300 Mg Capsule 300 Mg PO BID Nitrofurantoin Edwards-Mcr 100 mg (Nitrofurantoin Monohyd/M-Cryst) 100 Mg Capsule 100 Mg PO DAILY 6 Days Hold while on Cefdinir Tresiba Flextouch U-200 (Insulin Degludec) 200 Unit/1 Ml Insuln.pen 10 Units SC HS 7 Days contact PCP next week for modifications Reported Folic Acid 1 Mg Tablet 5 Mg PO DAILY TAKES 5 (1MG) TABS Celecoxib 200 Mg Capsule 200 Mg PO DAILY Stool Softener (Docusate Sodium) 100 Mg Capsule 100-200 Mg PO DAILY PRN Excedrin Migraine Caplet (Aspirin/Acetaminophen/Caffeine) 1 Each Tablet 2 Each PO Q6-8HR PRN Synthroid (Levothyroxine Sodium) 100 Mcg Tablet 100 Mcg PO DAILY Omeprazole 20 Mg Capsule.dr 20 Mg PO DAILY Assessment/Pt Instructions PCP in 1 week Discharge Planning: <30 minutes discharge planning Discharge Instructions Discharge Diet: ADA Diet Activity as Tolerated: Yes Discharge Physical Examination Vital Signs Vital Signs Date Time Temp Pulse Resp B/P (MAP) Pulse Ox O2 Delivery O2 Flow Rate FiO2 06/08/21 10:40 37.2 95 20 122/65 (84) 100 Room Air 06/07/21 00:36 21 General Appearance: No Apparent Distress, WD/WN, Chronically ill, Thin Neurologic/Psychiatric: Alert, Oriented x3, No Motor/Sensory Deficits, Normal Mood/Affect Allergies: Coded Allergies: amoxicillin (Verified Allergy, Unknown, Rash, 02/13/21) Discharge Summary Date of Admission Jun 07, 2021 at 00:03 Date of Discharge Discharge Date: Jun 08, 2021 Admission Diagnosis Altered mental status Hypoglycemia Hyponatremia Recent methotrexate toxicity Pancytopenia improved Neutropenia UTI acute on chronic Hypothyroidism Plan: Cefepime Supportive care HAYDEN CARDONA DO Jun 08, 2021 11:44
[2021-06-08 12:43] VITALS: BP 122/65
[2021-06-08 13:15] VITALS: BP 122/65
--- NOTE | 2021-06-08 14:03 | Progress Note ---
MICHEL LYNCH MED STUDENT 06/08/21 1403: Progress Note Hospital Course: Miss Zepeda, a 55 yo F, presented to the ED due to uncontrolled blood sugar. She was admitted because she met the criteria for severe sepsis and also found to be severely hyponatremic. While in the hospital, she was started on IV antibiotics, due to a urinary tract infection. She regularly takes macrobid for chronic uti's but was unable to for the last week due to recent methotrexate toxicity. Katelyn continued to show signs of improvement on the antibiotics. The hyponatremia was corrected slowly. As of this morning, she is feeling so much better and is ready to go home. Prescription for [facility]ir was [facility]. Once she is done with the cefdinir course, she will be able to restart her daily macrobid. Pt will set up follow up appointment with her primary care, Dr. Gordo martinez. She is safe and stable to be discharged home today. HANNAH CARDONA DO 06/09/21 0556: Supervisory-Addendum Brief Verification & Attestation Participated in pt care: history, MDM, physical Personally performed: exam, history, MDM, supervision of care Care discussed with: Medical Student Procedures: n/a Results interpretation: Verified all documentation Verification and Attestation of Medical Student E/M Service A medical student performed and documented this service in my presence. I reviewed and verified all information documented by the medical student and made modifications to such information, when appropriate. I personally performed the physical exam and medical decision making. Hannah Cardona, Jun 09, 2021,05:56 MICHEL LYNCH MED STUDENT Jun 08, 2021 14:03 HANNAH CARDONA DO Jun 09, 2021 05:56
== END 2021-06-08 13:18 | disposition home or self-care (01) | DRG 872 ==
LOC: EDUNIT# 21:14 → ER FS 21:15 → 4TH 06-07 00:03
PROVIDERS: ADMIT Internal Medicine; ATTEND Internal Medicine
DX: A41.9 Sepsis, unspecified organism (principal); N39.0 Urinary tract infection, site not specified; E87.1 Hypo-osmolality and hyponatremia; D61.818 Other pancytopenia; R65.20 Severe sepsis without septic shock; D70.9 Neutropenia, unspecified; Z79.4 Long term (current) use of insulin; R31.9 Hematuria, unspecified; E11.649 Type 2 diabetes mellitus with hypoglycemia without coma; E03.9 Hypothyroidism, unspecified; G43.909 Migraine, unspecified, not intractable, without status migrainosus; M06.9 Rheumatoid arthritis, unspecified; Z79.82 Long term (current) use of aspirin; Z79.899 Other long term (current) drug therapy
CPT/HCPCS: 36415; 70450; 71045; 80048; 80053; 81000; 82947; 83605; 85025; 86850; 86900; 86901; 87040; 87077; 87088; 87804

== ENCOUNTER → 2021-06-21 | Outpatient (CLI) | payer OTHER ==
[~2021-06-21] MED LIST changes: +CELE-63 PO
[2021-06-21 14:02] LABS: BASOPHILS % (AUTO) 1 % (0-10); EOSINOPHILS # (AUTO) 0.1 10^3/uL (0.0-0.3); EOSINOPHILS % (AUTO) 2 % (0-10); HEMATOCRIT 30 % (35-52); HEMOGLOBIN 9.6 g/dL (11.5-16.0); LYMPHOCYTES # (AUTO) 0.4 10^3/uL (1.0-4.0); LYMPHOCYTES % (AUTO) 12 % (12-44); MEAN CORPUSCULAR HEMOGLOBIN 26 pg (25-34); MEAN CORPUSCULAR HGB CONC 32 g/dL (32-36); MEAN CORPUSCULAR VOLUME 81 fL (80-99); MEAN PLATELET VOLUME 10.3 fL (9.0-12.2); MONOCYTES # (AUTO) 0.2 10^3/uL (0.0-1.0); MONOCYTES % (AUTO) 6 % (0-12); NEUTROPHILS # (AUTO) 2.6 10^3/uL (1.8-7.8); NEUTROPHILS % (AUTO) 80 % (42-75); PLATELET COUNT 172 10^3/uL (130-400); WHITE BLOOD COUNT 3.3 10^3/uL (4.3-11.0)
[2021-06-21 14:21] LABS: ALBUMIN 2.8 GM/DL (3.2-4.5); BILIRUBIN,TOTAL 0.4 MG/DL (0.1-1.0); CALCIUM 8.3 MG/DL (8.5-10.1); CREATININE SERUM 0.71 MG/DL (0.60-1.30); POTASSIUM 3.8 MMOL/L (3.6-5.0); TOTAL PROTEIN 6.6 GM/DL (6.4-8.2)
== END ==
LOC: LAB FS 13:43
PROVIDERS: ATTEND Nurse Practitioner Family
DX: Z09 Encounter for follow-up examination after completed treatment for conditions other than malignant neoplasm (principal); E87.1 Hypo-osmolality and hyponatremia; Z86.19 Personal history of other infectious and parasitic diseases
CPT/HCPCS: 36415; 80053; 85025

== ENCOUNTER 2021-07-01 17:14 | Observation (INO) | payer OTHER ==
[~2021-07-01] VITALS: Ht 163.5 cm; Wt 54.1 kg
[2021-07-01] MEDS ORDERED: LACTATED RINGERS 1,000 ML IV STA (17:54)
[2021-07-01 17:58] LABS: BASOPHILS % (AUTO) 1 % (0-10); EOSINOPHILS # (AUTO) 0.1 10^3/uL (0.0-0.3); EOSINOPHILS % (AUTO) 5 % (0-10); HEMATOCRIT 28 % (35-52); HEMOGLOBIN 8.8 g/dL (11.5-16.0); LYMPHOCYTES # (AUTO) 0.6 10^3/uL (1.0-4.0); LYMPHOCYTES % (AUTO) 26 % (12-44); MEAN CORPUSCULAR HEMOGLOBIN 26 pg (25-34); MEAN CORPUSCULAR HGB CONC 32 g/dL (32-36); MEAN CORPUSCULAR VOLUME 81 fL (80-99); MEAN PLATELET VOLUME 10.1 fL (9.0-12.2); MONOCYTES # (AUTO) 0.2 10^3/uL (0.0-1.0); MONOCYTES % (AUTO) 9 % (0-12); NEUTROPHILS # (AUTO) 1.3 10^3/uL (1.8-7.8); NEUTROPHILS % (AUTO) 58 % (42-75); PLATELET COUNT 175 10^3/uL (130-400); WHITE BLOOD COUNT 2.2 10^3/uL (4.3-11.0)
--- NOTE | 2021-07-01 18:00 | ED General ---
General Stated Complaint: RASH Source of Information: Patient Exam Limitations: No Limitations History of Present Illness Date Seen by Provider: July 01, 2021 Time Seen by Provider: 17:19 Initial Comments 55-year-old female with past medical history of RA with prior methotrexate toxicity now with chronic rash that is improving as well as diabetes coming in d ue to lightheadedness.'s been going on for roughly 3 days. She believes she has been eating and drinking normally, but has little appetite. Some nausea but no vomiting. No diarrhea. No chest pain, shortness of breath, abdominal pain, focal weakness or numbness, and she states her rash has been improving. No fever that she knows of. Allergies and Home Medications Allergies Coded Allergies: amoxicillin (Verified Allergy, Unknown, Rash, 02/13/21) Patient Home Medication List Home Medication List Reviewed: Yes Aspirin/Acetaminophen/Caffeine (Excedrin Migraine Caplet) 1 Each Tablet, 2 EACH PO Q6-8HR PRN for Headache, (Reported) Entered as Reported by: ELVER GOMEZ on 05/25/21 1025 Cefdinir (Cefdinir) 300 Mg Capsule, 300 MG PO BID Prescribed by: HAYDEN CARDONA on 06/08/21 1143 Celecoxib (Celecoxib) 200 Mg Capsule, 200 MG PO DAILY, (Reported) Entered as Reported by: ELVER GOMEZ on 06/07/21 1112 Docusate Sodium (Stool Softener) 100 Mg Capsule, 100-200 MG PO DAILY PRN for CONSTIPATION-1ST LINE, (Reported) Entered as Reported by: ELVER GOMEZ on 05/25/21 1025 Folic Acid (Folic Acid) 1 Mg Tablet, 5 MG PO DAILY, (Reported) Entered as Reported by: ELVER GOMEZ on 06/07/21 1112 Insulin Degludec (Tresiba Flextouch U-200) 200 Unit/1 Ml Insuln.pen, 10 UNITS SC HS Prescribed by: HAYDEN CARDONA on 06/08/21 1143 Levothyroxine Sodium (Synthroid) 100 Mcg Tablet, 100 MCG PO DAILY, (Reported) Entered as Reported by: ELVER GOMEZ on 02/13/21 0841 Nitrofurantoin Monohyd/M-Cryst (Nitrofurantoin Putnam-Mcr 100 mg) 100 Mg Capsule, 100 MG PO DAILY Prescribed by: HAYDEN CARDONA on 06/08/21 1143 Omeprazole (Omeprazole) 20 Mg Capsule., 20 MG PO DAILY, (Reported) Entered as Reported by: ELVER GOMEZ on 02/13/21 0841 Review of Systems Review of Systems Constitutional: No chills, No fever EENTM: No blurred vision Respiratory: No cough, No short of breath Cardiovascular: No chest pain, No syncope Gastrointestinal: no symptoms reported Genitourinary: no symptoms reported Musculoskeletal: no symptoms reported Skin: rash Psychiatric/Neurological: No Symptoms Reported Hematologic/Lymphatic: No Symptoms Reported Immunological/Allergic: no symptoms reported All Other Systems Reviewed Negative Unless Noted: Yes Past Hoptgot-Clgmqt-Ejgnha Hx Patient Social History Tobacco Use?: No Immunizations Up To Date First/Initial COVID19 Vaccinat: July 21 COVID19 Vaccination Ziyad: August 21 COVID19 Vaccination Date: August 2020 Past Medical History Surgery/Hospitalization HX: Diabetes, recurrent E. coli urine infections Surgeries: Yes (partial thyroidectomy) Section, Gallbladder, Hysterectomy, Thyroidectomy, Tubal Ligation Respiratory: No Cardiac: No Neurological: Yes Headaches /Migraines Genitourinary: Yes Kidney Infection, Bladder Infection Gastrointestinal: No Musculoskeletal: Yes Rheumatoid Arthritis Endocrine: Yes Diabetes, Insulin dep HEENT: Yes (wears glasses) Cancer: No Psychosocial: No Integumentary: No Adverse Reaction/Blood Tranf: No Family Medical History Cancer Physical Exam Vital Signs Vital Signs - First Documented 07/01/21 17:39 Temp 37.6 Pulse 131 Resp 14 B/P (MAP) 97/61 (73) Pulse Ox 98 O2 Delivery Room Air Capillary Refill : Height, Weight, BMI Height: '" Weight: lbs. oz. kg; 20.57 BMI Method: General Appearance: No Apparent Distress, WD/WN Eyes: Bilateral Eye Normal Inspection HEENT: PERRL/EOMI, Normal ENT Inspection, Pharynx Normal Neck: Full Range of Motion, Normal Inspection, Non Tender, Supple Respiratory: Chest Non Tender, Lungs Clear, Normal Breath Sounds, No Accessory Muscle Use, No Respiratory Distress Cardiovascular: Regular Rate, Rhythm, No Edema, Normal Peripheral Pulses Gastrointestinal: Normal Bowel Sounds, Non Tender, Soft; No Distended, No Guarding Back: Normal Inspection, No CVA Tenderness, No Vertebral Tenderness Extremity: Normal Capillary Refill, Normal Inspection, Normal Range of Motion, Non Tender, No Calf Tenderness, No Pedal Edema Neurologic/Psychiatric: Alert, No Motor/Sensory Deficits, Normal Mood/Affect Skin: Normal Color, Warm/Dry, Rash (Peeling flaky skin) Lymphatic: No Adenopathy Focused Exam Lactate Level 07/01/21 17:54: Lactic Acid Level 2.46*H Lactic Acid Level Laboratory Tests Test 07/01/21 17:54 Lactic Acid Level 2.46 MMOL/L (0.50-2.00) *H Progress/Results/Core Measures Suspected Sepsis SIRS Temperature: Pulse: Respiratory Rate: Laboratory Tests 07/01/21 17:50: White Blood Count 2.2L Blood Pressure / Mean: 07/01/21 17:54: Lactic Acid Level 2.46*H Laboratory Tests 07/01/21 17:50: Creatinine 0.71, Platelet Count 175, Total Bilirubin 0.4 Results/Orders Lab Results Laboratory Tests Test 07/01/21 17:50 07/01/21 17:54 Range/Units White Blood Count 2.2 L 4.3-11.0 10^3/uL Red Blood Count 3.39 L 3.80-5.11 10^6/uL Hemoglobin 8.8 L 11.5-16.0 g/dL Hematocrit 28 L 35-52 % Mean Corpuscular Volume 81 80-99 fL Mean Corpuscular Hemoglobin 26 25-34 pg Mean Corpuscular Hemoglobin Concent 32 32-36 g/dL Red Cell Distribution Width 19.4 H 10.0-14.5 % Platelet Count 175 130-400 10^3/uL Mean Platelet Volume 10.1 9.0-12.2 fL Immature Granulocyte % (Auto) 1 % Neutrophils (%) (Auto) 58 42-75 % Lymphocytes (%) (Auto) 26 12-44 % Monocytes (%) (Auto) 9 0-12 % Eosinophils (%) (Auto) 5 0-10 % Basophils (%) (Auto) 1 0-10 % Neutrophils # (Auto) 1.3 L 1.8-7.8 10^3/uL Lymphocytes # (Auto) 0.6 L 1.0-4.0 10^3/uL Monocytes # (Auto) 0.2 0.0-1.0 10^3/uL Eosinophils # (Auto) 0.1 0.0-0.3 10^3/uL Basophils # (Auto) 0.0 0.0-0.1 10^3/uL Immature Granulocyte # (Auto) 0.0 0.0-0.1 10^3/uL Sodium Level 121 *L 135-145 MMOL/L Potassium Level 5.0 3.6-5.0 MMOL/L Chloride Level 91 L 98-107 MMOL/L Carbon Dioxide Level 22 21-32 MMOL/L Anion Gap 8 5-14 MMOL/L Blood Urea Nitrogen 14 7-18 MG/DL Creatinine 0.71 0.60-1.30 MG/DL Estimat Glomerular Filtration Rate 99 BUN/Creatinine Ratio 20 Glucose Level 482 *H 70-105 MG/DL Calcium Level 7.8 L 8.5-10.1 MG/DL Corrected Calcium 9.1 8.5-10.1 MG/DL Total Bilirubin 0.4 0.1-1.0 MG/DL Aspartate Amino Transf (AST/SGOT) 22 5-34 U/L Alanine Aminotransferase (ALT/SGPT) 7 0-55 U/L Alkaline Phosphatase 177 H 40-136 U/L Troponin I < 0.30 <0.30 NG/ML C-Reactive Protein 0.59 H <0.50 MG/DL Total Protein 6.5 6.4-8.2 GM/DL Albumin 2.4 L 3.2-4.5 GM/DL Lactic Acid Level 2.46 *H 0.50-2.00 MMOL/L My Orders Orders - CAMILA DE SANTIAGO MD Cbc With Automated Diff (07/01/21 17:54) Comprehensive Metabolic Panel (07/01/21 17:54) Lactic Acid Analyzer (07/01/21 17:54) Ua Culture If Indicated (07/01/21 17:54) Crp Fs (07/01/21 17:54) Troponin I Fs (07/01/21 17:54) Lactated Ringers (Lr 1000 Ml Iv Solution (07/01/21 17:54) Insulin (Regular) Human (Novolin R (Per (07/01/21 18:33) Ns Iv 1000 Ml (Sodium Chloride 0.9%) (07/01/21 18:33) Blood Culture (07/01/21 18:34) Cefepime Injection (Maxipime Injection) (07/01/21 18:45) Ed Admission (Communication) (07/01/21 18:43) Medications Given in ED Current Medications Medications Dose Ordered Sig/Froilan Route Start Time Stop Time Status Last Admin Dose Admin Cefepime HCl 1000 mg/Sodium Chloride 50 ml @ 100 mls/hr ONCE ONCE IV 07/01/21 18:45 07/01/21 19:14 DC 07/01/21 19:13 100 MLS/HR Vital Signs/I&O 07/01/21 07/01/21 17:39 18:06 Temp 37.6 Pulse 131 119 132 147 Resp 14 B/P (MAP) 97/61 (73) 105/66 (79) 91/65 (74) 64/53 (57) Pulse Ox 98 O2 Delivery Room Air Capillary Refill : Progress Note : Progress Note 55-year-old female coming in due to feeling lightheaded. Blood pressure 105/66 with a heart rate of 119 on arrival. Upon standing blood pressure was 64/53 with a heart rate of 147. She was feeling lightheaded at this time. An IV was placed and she was given a bolus of IV fluids. Sodium level today at 121, creatinine around 2.5 which is elevated from prior but not too far off. Lactate elevated greater than 2. No fever or other signs of infection at this time. Glucose was very elevated. I suspect she is dehydrated and that is the cause of her vital sign abnormalities and the lactic acidosis. Given the orthostasis however we did do blood cultures and give her 1 dose of broad-spectrum antibiotics. I called and discussed the case with Dr. Cardona who admit the patient under observation status for now. The patient states she wants to go private vehicle and have her significant other drive her. Blood pressure and heart rate improved after fluids so we did not push against her will. Departure Impression Primary Impression: Hyperglycemia due to diabetes mellitus Additional Impressions: Orthostatic hypotension Hyponatremia Lactic acidosis Disposition: 30 STILL A PATIENT Condition: Stable Admissions Decision to Admit Reason: Admit from ER (General) Decision to Admit/Date: July 01, 2021 Time/Decision to Admit Time: 18:35 Transfer Method of Transfer: EMS Departure-Patient Inst. Referrals: ALEC MITCHELL APRN (PCP) Primary Care Physician [facility] (Family) Primary Care Physician CAMILA DE SANTIAGO MD July 01, 2021 18:00
[2021-07-01 18:06] VITALS: BP_SYST 105; BP_SYST 64; BP_SYST 91; BP_DIAS 53; BP_DIAS 65; BP_DIAS 66
[2021-07-01 18:21] LABS: BUN/CREATININE RATIO 20; CARBON DIOXIDE 22 MMOL/L (21-32); CHLORIDE 91 MMOL/L (98-107); CREATININE SERUM 0.71 MG/DL (0.60-1.30); GFR ESTIMATED 99
[2021-07-01 18:22] LABS: ALANINE AMINOTRANSFERASE 7 U/L (0-55); ALBUMIN 2.4 GM/DL (3.2-4.5); ALKALINE PHOSPHATASE 177 U/L (40-136); BILIRUBIN,TOTAL 0.4 MG/DL (0.1-1.0); CALCIUM 7.8 MG/DL (8.5-10.1); TOTAL PROTEIN 6.5 GM/DL (6.4-8.2)
[2021-07-01 18:23] LABS: GLUCOSE 482 MG/DL (70-105); SODIUM 121 MMOL/L (135-145)
[2021-07-01] MEDS ORDERED: inSUlin (REGULAR) HUMAN 1 UNIT/0.01 ML (CHARGE PER UNIT) SC STA (18:33)
[2021-07-01] MEDS ORDERED: NS IV 1000 ML 1,000 ML IV STA (18:33)
[2021-07-01] MEDS ORDERED: CEFEPIME INJECTION 1,000 MG in NS (IVPB) 50 ML IV ONE (18:45)
[2021-07-01 21:10] VITALS: BP 151/80
[2021-07-01] MEDS ORDERED: MELATONIN 3 MG TABLET PO PRN (22:00)
[2021-07-01] MEDS ORDERED: morphine INJ 4 MG/ML 1 ML (VIAL/SYRINGE) IV PRN (22:00)
[2021-07-01] MEDS ORDERED: ANTACID SUSP 30 ML UDC (MYLANTA) PO PRN (22:00)
[2021-07-01] MEDS ORDERED: BISACODYL 10 MG SUPP (DULCOLAX) PR PRN (22:00)
[2021-07-01] MEDS ORDERED: ONDANSETRON 4 MG (ZOFRAN) ORAL DISSOLVE TAB PO PRN (22:00)
[2021-07-01] MEDS ORDERED: diphenhydrAMINE 50 MG/ML INJ (BENADRYL) IVP PRN (22:00)
[2021-07-01] MEDS ORDERED: diphenhydrAMINE 25 MG TAB (BENADRYL) PO PRN (22:00)
[2021-07-01] MEDS ORDERED: ALPRAZolam 0.25 MG (XANAX) TAB PO PRN (22:00)
[2021-07-01] MEDS ORDERED: ONDANSETRON 4 MG/2 ML (SDV) Z0FRAN IV PRN (22:00)
[2021-07-01] MEDS ORDERED: polyethylene glycoL POWDER 17 GM (MIRALAX) PACK PO PRN (22:00)
[2021-07-01] MEDS ORDERED: ACETAMINOPHEN 325 MG TABLET PO PRN (22:00)
[2021-07-01] MEDS ORDERED: inSUlin ASPART (NovoLOG) 1 UNIT/0.01 ML (CHARGE PER UNIT) ONE (22:21)
[2021-07-01] MEDS: ENOXAPARIN 40 MG/0.4 ML (LOVENOX) SYR SC SCH (22:26)
[2021-07-01] MEDS: NS IV 1000 ML 1,000 ML IV SCH (22:26)
[2021-07-01] MEDS: inSUlin ASPART (NovoLOG) 1 UNIT/0.01 ML (CHARGE PER UNIT) SC SCH (22:26)
[2021-07-01 22:36] VITALS: BP 129/77
[2021-07-01] MEDS ORDERED: RT-ALBUTEROL/IPRATROPIUM 3 ML (DUONEB) VIAL INH PRN (22:45)
[2021-07-02] MEDS ORDERED: NS IV 1000 ML 1,000 ML IV SCH (00:15)
[2021-07-02 00:26] VITALS: BP 119/66
[2021-07-02] MEDS: CEFEPIME INJECTION 1,000 MG in NS (IVPB) 50 ML IV SCH ×4 (00:27→17:59)
[2021-07-02 03:56] VITALS: BP 116/47
[2021-07-02] MEDS: inSUlin ASPART (NovoLOG) 1 UNIT/0.01 ML (CHARGE PER UNIT) SC SCH ×3 (05:30→20:35)
[2021-07-02] MEDS: NS IV 1000 ML 1,000 ML IV SCH ×3 (05:31→20:33)
[2021-07-02 05:36] LABS: BASOPHILS % (AUTO) 0 % (0-10); EOSINOPHILS # (AUTO) 0.1 10^3/uL (0.0-0.3); EOSINOPHILS % (AUTO) 4 % (0-10); HEMATOCRIT 25 % (35-52); HEMOGLOBIN 7.8 g/dL (11.5-16.0); LYMPHOCYTES # (AUTO) 0.4 10^3/uL (1.0-4.0); LYMPHOCYTES % (AUTO) 13 % (12-44); MEAN CORPUSCULAR HEMOGLOBIN 26 pg (25-34); MEAN CORPUSCULAR HGB CONC 32 g/dL (32-36); MEAN CORPUSCULAR VOLUME 82 fL (80-99); MEAN PLATELET VOLUME 9.9 fL (9.0-12.2); MONOCYTES # (AUTO) 0.1 10^3/uL (0.0-1.0); MONOCYTES % (AUTO) 5 % (0-12); NEUTROPHILS # (AUTO) 2.2 10^3/uL (1.8-7.8); NEUTROPHILS % (AUTO) 78 % (42-75); PLATELET COUNT 148 10^3/uL (130-400); WHITE BLOOD COUNT 2.8 10^3/uL (4.3-11.0)
[2021-07-02 05:47] LABS: POTASSIUM 3.9 MMOL/L (3.6-5.0)
[2021-07-02 05:48] LABS: CALCIUM 7.2 MG/DL (8.5-10.1)
[2021-07-02 05:50] LABS: TOTAL PROTEIN 5.2 GM/DL (6.4-8.2)
[2021-07-02 05:52] LABS: BILIRUBIN,TOTAL 0.3 MG/DL (0.1-1.0)
[2021-07-02 05:53] LABS: CREATININE SERUM 0.69 MG/DL (0.60-1.30)
--- NOTE | 2021-07-02 06:16 | History & Physical-Hospitalist ---
History of Present Illness HPI/Chief Complaint Chief complaint: Orthostatic hypotension from hypovolemia from dehydration with UTI without evidence of sepsis History of present illness: This is a 55-year-old white female very declined individual with history of rheumatoid arthritis and recent methotrexate toxicity and recurrent UTI who remains on Celebrex in the meantime to manage her arthritis discomfort who presented to the ER with orthostatic hypotension and dehydration. Her sugars were 400 and does not generally run that high. She was given aggressive IV fluids and currently she is doing a lot better but having nausea and vomiting and overall not feeling well. Her lactic acid was elevated due to the profound hypovolemia without evidence of sepsis but she does have UTI and cefepime was initiated empirically. Source: patient Exam Limitations: no limitations Date Seen 07/02/21 Time Seen by a Provider: 09:30 Attending Physician Hannah Aviles DO PCP Ursula Perkins Aprn Referring Physician Date of Admission July 01, 2021 at 21:10 Home Medications & Allergies Home Medications Reviewed patient Home Medication Reconciliation performed by pharmacy medication reconciliations mobile home technician and/or nursing. Patients Allergies have been reviewed. Allergies Allergies Coded Allergies amoxicillin (Verified Allergy, Unknown, Rash, 02/13/21) Past Rkfqaod-Vtmlrk-Ajwsfl Hx Patient Social History Marrital Status: single Employed/Student: unemployed Tobacco Use?: No Smoking Status: Former Smoker Smokeless Tobacco Frequency: Never a User Use of E-Cig and/or Vaping dev: No Substance use?: No Alcohol Use?: No Pt feels they are or have been: No Immunizations Up To Date First/Initial COVID19 Vaccinat: July 21 Second COVID19 Vaccination Ziyad: August 21 Tetanus Booster (TDap): Less Than 5 Years Current Status Advance Directives: No Communicates: Verbally Primary Language: Occitan Preferred Spoken Language: Occitan Is interpretation needed?: No Implanted or Applied Medical D: None Past Medical History Surgeries: Section, Gallbladder, Hysterectomy, Thyroidectomy, Tubal Ligation Headaches /Migraines Kidney Infection, Bladder Infection Rheumatoid Arthritis Diabetes, Insulin dep Adverse Reaction/Blood Tranf: No PMHx: Diabetes Rheumatoid arthritis Hypothyroidism SurgHx: Partial thyroidectomy- benign Hysterectomy Cholecystectomy Tubal ligation Family Medical History Cancer Review of Systems Constitutional: see HPI, dizziness, malaise, weakness EENTM: no symptoms reported Respiratory: no symptoms reported Cardiovascular: no symptoms reported Gastrointestinal: nausea, vomiting Genitourinary: no symptoms reported Musculoskeletal: joint pain Skin: no symptoms reported Psychiatric/Neurological: Headache Physical Exam Physical Exam Vital Signs Vital Signs - First Documented 07/01/21 17:39 Temp 37.6 Pulse 131 Resp 14 B/P (MAP) 97/61 (73) Pulse Ox 98 O2 Delivery Room Air Capillary Refill : Less Than 3 Seconds Height, Weight, BMI Height: '" Weight: lbs. oz. kg; 20.23 BMI Method: General Appearance: No Apparent Distress, Chronically ill, Thin Eyes: Right Eye Normal Inspection, Right Eye PERRL HEENT: PERRL/EOMI, Normal ENT Inspection, Pharynx Normal, Moist Mucous Membranes Neck: Full Range of Motion, Normal Inspection, Non Tender Respiratory: Chest Non Tender, Lungs Clear, Normal Breath Sounds, No Accessory Muscle Use, No Respiratory Distress Cardiovascular: Regular Rate, Rhythm, No Edema, No Gallop, No JVD, No Murmur, Normal Peripheral Pulses Gastrointestinal: Normal Bowel Sounds, No Organomegaly, No Pulsatile Mass, Non Tender, Soft Back: Normal Inspection, No CVA Tenderness, No Vertebral Tenderness Extremity: Normal Capillary Refill, Normal Inspection, Normal Range of Motion, Non Tender, No Calf Tenderness, No Pedal Edema Neurologic/Psychiatric: Alert, Oriented x3, No Motor/Sensory Deficits, Normal Mood/Affect Skin: Normal Color, Warm/Dry Lymphatic: No Adenopathy Results Results/Procedures Labs Laboratory Tests 07/01/21 17:50 07/02/21 05:21 Patient resulted labs reviewed. Assessment/Plan Admission Diagnosis Assessment: Orthostatic hypotension UTI without evidence of sepsis Recurrent UTI Rheumatoid arthritis Anemia Neutropenia Lactic acidosis due to hypovolemia Hyperglycemia History of diabetes Plan: IV fluid Cefepime Await urine culture Monitor sugar Admission Status: Observation Diagnosis/Problems Diagnosis/Problems (1) Orthostatic hypotension Status: Acute (2) UTI (urinary tract infection) HANNAH AVILES DO July 02, 2021 06:16
[2021-07-02 07:32] VITALS: BP 159/82
[2021-07-02 08:15] LABS: BILIRUBIN,URINE NEGATIVE (NEGATIVE); CLARITY,URINE CLEAR; COLOR,URINE YELLOW; GLUCOSE, URINE (UA) NEGATIVE (NEGATIVE); KETONES,URINE NEGATIVE (NEGATIVE); LEUKOCYTE ESTERASE ,URINE 2+ (NEGATIVE); NITRITE,URINE NEGATIVE (NEGATIVE); PH,URINE 6.5 (5-9); PROTEIN,URINE NEGATIVE (NEGATIVE)
[2021-07-02 08:16] LABS: BACTERIA,URINE TRACE /HPF; SQUAMOUS EPITHELIAL CELL,UR 0-2 /HPF
[2021-07-02] MEDS: SODIUM CHLORIDE 1 GM TABLET PO SCH ×2 (09:56→20:34)
[2021-07-02] MEDS: DOCUSATE SODIUM 100 MG (COLACE) CAP PO SCH ×2 (09:56→20:35)
--- NOTE | 2021-07-02 11:22 | Physical Therapy Evaluation ---
PT Evaluation-General Medical Diagnosis Admission Date July 01, 2021 at 21:10 Medical Diagnosis: orthostatic hypotension Onset Date: July 01, 2021 Therapy Diagnosis Therapy Diagnosis: debility Precautions Precautions/Isolations: Fall Prevention, Standard Precautions Referral Physician: Stefan Reason for Referral: Evaluation/Treatment Medical History Pertinent Medical History: DM, Rheumatoid Arthritis Current History multiple hospital admits secondary to methotrexate toxicity Reviewed History: Yes Social History Home: Single Level Prior Prior Level of Function SCALE: Activities may be completed with or without assistive devices. 4-Dihidxpltl-ylcwjdv completes the activity by him/herself with no assistance from a helper. 5-Set-up or Clean-up Assistance-helper sets up or cleans up; patient completes activity. [place] assists only prior to or following the activity. 4-Supervision or Touching Assistance-helper provides verbal cues and/or touching/steadying and/or contact guard assistance as patient completes activity. Assistance may be provided throughout the activity or intermittently. 3-Partial/Moderate Assistance-helper does LESS THAN HALF the effort. [place] lifts, holds or supports trunk or limbs, but provides less than half the effort. 2-Substantial/Maximal Assistance-helper does MORE THAN HALF the effort. [place] lifts or holds trunk or limbs and provides more than half the effort. 1-Wkusvakwl-nkqzhf does ALL the effort. Patient does none of the effort to complete the activity. Or, the assistance of 2 or more helpers is required for the patient to complete the activity. If activity was not attempted, code reason: 7-Patient Refused. 9-Not Applicable-not attempted and the patient did not perform the activity before the current illness, exacerbation or injury. 10-Not Attempted due to Environmental Limitations-(lack of equipment, weather restraints, etc.). 88-Not Attempted due to Medical Conditions or Safety Concerns. Bed Mobility: 6 Transfers (B,C,W/C): 6 Gait: 6 PT Evaluation-Current Subjective Patient had thrown up requiring assist to cleanse and change gown. Objective Patient Orientation: Normal For Age ROM/Strength ROM Lower Extremities bilateral LE WFL Strength Lower Extremities 4-/5 grossly bilateral LE Integumentary/Posture Integumentary refer to nursing notes Bowel Incontinence: No Bladder Incontinence: No Posture slightly kyphotic Neuromuscular (Tone, Coordination, Reflexes) grossly intact Sensory Vision: Wears Glasses Hearing: Functional Transfers Sit to Stand (QC): 4 Gait Does the Patient Walk?: Yes Mode of Locomotion: Walk Anticipated Mode of Locomotion: Walk Walk 10 feet (QC): 4 Walk 50 ft with 2 Turns(QC): 4 Walk 150 ft (QC): 4 Distance: 225' Gait Assistive Device: FWW Comments/Gait Description safe and functional with no deviation Balance Sitting Static: Normal Sitting Dynamic: Normal Standing Static: Fair Standing Dynamic: Fair Assessment/Needs 55 y.o. female, will be seen short term by skilled PT to address functional strength and mobility to improve current LOF to safely return to home at maximum LOF. Rehab Potential: Fair PT Food Service Kitchen Supervisor Goals Nursing Home Goals PT Food Service Kitchen Supervisor Goals Time Frame: July 14, 2021 Roll Left & Right (QC): 6 Sit to Lying (QC): 6 Lying-Sitting on Side/Bed(QC): 6 Sit to Stand (QC): 6 Chair/Pdr-ux-Ernzj Xfer(QC): 6 Toilet Transfer (QC): 6 Walk 10 feet (QC): 6 Walk 50ft with 2 Turns (QC): 6 Walk 150 ft (QC): 6 PT Plan Problem List Problem List: Activity Tolerance, Functional Strength, Safety, Balance, Gait, Transfer, Bed Mobility Treatment/Plan Treatment Plan: Continue Plan of Care Treatment Plan: Bed Mobility, Education, Functional Activity Daniela, Functional Strength, Gait, Safety, Therapeutic Exercise, Transfers Treatment Duration: July 14, 2021 Frequency: 6 times per week Estimated Hrs Per Day: .25 hour per day Patient and/or Family Agrees t: Yes Time/GCodes Time In: 1020 Time Out: 1040 Total Billed Treatment Time: 20 Total Billed Treatment 1 visit [facility] 20 min NAVEEN ORTIZ PT July 02, 2021 11:21
--- NOTE | 2021-07-02 11:31 | Occupational Therapy Eval ---
OT Evaluation-General/PLF Medical Diagnosis Admission Date July 01, 2021 at 21:10 Medical Diagnosis: Orthostatic hypertension Onset Date: July 01, 2021 Therapy Diagnosis Therapy Diagnosis: Orthostatic hypertension Precautions Precautions/Isolations: Fall Prevention, Standard Precautions Referral Referral Reason: Evaluation/Treatment Medical History Pertinent Medical History: DM, Rheumatoid Arthritis Current History Pt states she lives in a mobile home with her spouse. She was independent with adls, except provides CGA for safety when fatigue increases at end of her shower. Spouse provides all iadls. Pt reports she does not leave the home except for medical appointments; sedentary lifestyle. She does not use any AD, but will have CARGO BRACER from spouse when walking to/from appointments. Reviewed History: Yes Social History Home: Single Level (mobile home) Current Living Status: Spouse ADL-Prior Level of Function SCALE: Activities may be completed with or without assistive devices. 2-Mkvpjwjvax-tjginim completes the activity by him/herself with no assistance from a helper. 5-Set-up or Clean-up Assistance-helper sets up or cleans up; patient completes activity. [place] assists only prior to or following the activity. 4-Supervision or Touching Assistance-helper provides verbal cues and/or touching/steadying and/or contact guard assistance as patient completes activity. Assistance may be provided throughout the activity or intermittently. 3-Partial/Moderate Assistance-helper does LESS THAN HALF the effort. [place] lifts, holds or supports trunk or limbs, but provides less than half the effort. 2-Substantial/Maximal Assistance-helper does MORE THAN HALF the effort. [place] lifts or holds trunk or limbs and provides more than half the effort. 1-Kjjmbitwa-bilujn does ALL the effort. Patient does none of the effort to complete the activity. Or, the assistance of 2 or more helpers is required for the patient to complete the activity. If activity was not attempted, code reason: 7-Patient Refused. 9-Not Applicable-not attempted and the patient did not perform the activity before the current illness, exacerbation or injury. 10-Not Attempted due to Environmental Limitations-(lack of equipment, weather restraints, etc.). 88-Not Attempted due to Medical Conditions or Safety Concerns. Self Care: Needed Some Help Functional Cognition: Independent DME/Equipment: Tub/Shower Drive Self: No OT Current Status Subjective Pt reports feelings of nausea at OT arrival. No n/v during evaluation. Appearance Pt returned to bed per request, all needs within reach at therapy departure. Mental Status/Objective Patient Orientation: Person, Place, Situation Attachments: IV Current Glasses/Contacts: Yes Hand Dominance: Right Upper Extremity ROM WNL Upper Extremity Strength 3+/5 grossly ADL-Treatment Eating (QC): 6 Oral Hygiene (QC): 6 Lower Body Dressing (QC): 4 On/Off Footwear (QC): 6 Pt sitting in recliner at OT arrival. Reports nausea but still agreeable to evaluation. Able to don/doff socks without any effort. BP in sittin/75, HR 130, O2: 100%. Sit<>stand: Supervision. No unsteadiness observed. Vitals checked again in standing with zero UE support. BP: 116/63, HR 154 bpm, O2 100%. Pt asymptomatic. She was able to adjust/manage underwear over hips without any assist. She ambulated ~10 feet to bed with use of walker and sba. With prolonged standing, HR continues to raise. No further distance performed secondary to increased HR and drop in BP. She verbalizes fatigue but is also sedentary at home. She was able to return to supine without any assist. Education OT Patient Education: Modified ADL techniques, Purpose of tx/functional activities Teaching Recipient: Patient Teaching Methods: Discussion Response to Teaching: Verbalize Understanding, Return Demonstration OT Sole Assessor Goals Sole Assessor Goals 1=Demonstrate adherence to instructed precautions during ADL tasks. 2=Patient will verbalize/demonstrate understanding of assistive devices/modifications for ADL. 3=Patient will improve strength/tolerance for activity to enable patient to perform ADL's. OT Education/Plan Problem List/Assessment Assessment: No Skilled OT Needs ID'd (Pt at baseline for adls. ) Discharge Recommendations Plan/Recommendations: Continue POC Therapy Discharge Recommendati: Home & Family (pending medical progress ) Treatment Plan/Plan of Care Treatment,Training & Education: Yes Patient would benefit from OT for education, treatment and training to promote independence in ADL's, mobility, safety and/or upper extremity function for ADL's. Plan of Care: ADL Retraining Treatment Duration: July 02, 2021 Frequency: 1 time per week Estimated Hrs Per Day: .25 hour per day Agreement: Yes Time/GCodes Start Time: 10:44 Stop Time: 10:56 Total Time Billed (hr/min): 12 Billed Treatment Time 1 visit Rylee Edmonds OT July 02, 2021 11:31
[2021-07-02 11:36] VITALS: BP 157/77
[2021-07-02 15:55] VITALS: BP 154/80
[2021-07-02] MEDS: ENOXAPARIN 40 MG/0.4 ML (LOVENOX) SYR SC SCH (20:32)
[2021-07-02 20:37] VITALS: BP 142/69
[2021-07-03] MEDS: CEFEPIME INJECTION 1,000 MG in NS (IVPB) 50 ML IV SCH ×2 (00:12→06:26)
[2021-07-03 00:21] VITALS: BP 133/80
[2021-07-03 04:39] VITALS: BP 152/86
--- NOTE | 2021-07-03 05:21 | Progress Note - Hospitalist ---
Subjective HPI/CC On Admission Date Seen by Provider: July 03, 2021 Time Seen by Provider: 10:00 Chief complaint: Orthostatic hypotension from hypovolemia from dehydration with UTI without evidence of sepsis History of present illness: This is a 55-year-old white female very declined individual with history of rheumatoid arthritis and recent methotrexate toxicity and recurrent UTI who remains on Celebrex in the meantime to manage her arthritis discomfort who presented to the ER with orthostatic hypotension and dehydration. Her sugars were 400 and does not generally run that high. She was given aggressive IV fluids and currently she is doing a lot better but having nausea and vomiting and overall not feeling well. Her lactic acid was elevated due to the profound hypovolemia without evidence of sepsis but she does have UTI and cefepime was initiated empirically. Focused Exam Lactate Level 07/01/21 17:54: Lactic Acid Level 2.46*H 07/01/21 22:58: Lactic Acid Level 3.91*H Objective Exam Vital Signs Vital Signs Date Time Temp Pulse Resp B/P (MAP) Pulse Ox O2 Delivery O2 Flow Rate FiO2 07/03/21 08:00 36.9 103 18 149/80 (103) 99 Room Air 07/03/21 07:37 0.00 Capillary Refill : Less Than 3 Seconds Results/Procedures Lab Laboratory Tests 07/03/21 05:13 Patient resulted labs reviewed. Diagnosis/Problems Diagnosis/Problems (1) Orthostatic hypotension Status: Acute (2) UTI (urinary tract infection) HAYDEN CARDONA DO July 03, 2021 05:21
[2021-07-03 05:54] LABS: BASOPHILS % (AUTO) 1 % (0-10); EOSINOPHILS # (AUTO) 0.2 10^3/uL (0.0-0.3); EOSINOPHILS % (AUTO) 7 % (0-10); HEMATOCRIT 24 % (35-52); HEMOGLOBIN 7.8 g/dL (11.5-16.0); LYMPHOCYTES # (AUTO) 0.5 10^3/uL (1.0-4.0); LYMPHOCYTES % (AUTO) 24 % (12-44); MEAN CORPUSCULAR HEMOGLOBIN 26 pg (25-34); MEAN CORPUSCULAR HGB CONC 32 g/dL (32-36); MEAN CORPUSCULAR VOLUME 82 fL (80-99); MEAN PLATELET VOLUME 10.7 fL (9.0-12.2); MONOCYTES # (AUTO) 0.3 10^3/uL (0.0-1.0); MONOCYTES % (AUTO) 13 % (0-12); NEUTROPHILS # (AUTO) 1.2 10^3/uL (1.8-7.8); NEUTROPHILS % (AUTO) 55 % (42-75); PLATELET COUNT 179 10^3/uL (130-400); WHITE BLOOD COUNT 2.2 10^3/uL (4.3-11.0)
[2021-07-03 06:03] LABS: POTASSIUM 4.3 MMOL/L (3.6-5.0)
[2021-07-03 06:04] LABS: CALCIUM 7.3 MG/DL (8.5-10.1)
[2021-07-03 06:06] LABS: TOTAL PROTEIN 5.5 GM/DL (6.4-8.2)
[2021-07-03 06:07] LABS: BILIRUBIN,TOTAL 0.4 MG/DL (0.1-1.0)
[2021-07-03 06:09] LABS: CREATININE SERUM 0.71 MG/DL (0.60-1.30)
[2021-07-03] MEDS: inSUlin ASPART (NovoLOG) 1 UNIT/0.01 ML (CHARGE PER UNIT) SC SCH ×2 (06:14→11:55)
[2021-07-03] MEDS: NS IV 1000 ML 1,000 ML IV SCH (06:27)
[2021-07-03 08:00] VITALS: BP 149/80
[2021-07-03] MEDS: DOCUSATE SODIUM 100 MG (COLACE) CAP PO SCH (09:27)
[2021-07-03] MEDS: SODIUM CHLORIDE 1 GM TABLET PO SCH (09:56)
--- NOTE | 2021-07-03 10:09 | Physical Therapy Daily Note ---
PT Daily Note-Current Subjective Patient agrees to PT. Mental Status Patient Orientation: Normal For Age Attachments: IV Transfers SCALE: Activities may be completed with or without assistive devices. 6-Qgsgqpwdcs-bjvzrhb completes the activity by him/herself with no assistance from a helper. 5-Set-up or Clean-up Assistance-helper sets up or cleans up; patient completes activity. [place] assists only prior to or following the activity. 4-Supervision or Touching Assistance-helper provides verbal cues and/or touching/steadying and/or contact guard assistance as patient completes activity. Assistance may be provided throughout the activity or intermittently. 3-Partial/Moderate Assistance-helper does LESS THAN HALF the effort. [place] lifts, holds or supports trunk or limbs, but provides less than half the effort. 2-Substantial/Maximal Assistance-helper does MORE THAN HALF the effort. [place] lifts or holds trunk or limbs and provides more than half the effort. 9-Qxvnzmzrs-tokdld does ALL the effort. Patient does none of the effort to complete the activity. Or, the assistance of 2 or more helpers is required for the patient to complete the activity. If activity was not attempted, code reason: 7-Patient Refused. 9-Not Applicable-not attempted and the patient did not perform the activity before the current illness, exacerbation or injury. 10-Not Attempted due to Environmental Limitations-(lack of equipment, weather restraints, etc.). 88-Not Attempted due to Medical Conditions or Safety Concerns. Lying to Sitting/Side of Bed(Q: 6 Sit to Stand (QC): 4 Chair/Lng-il-Yspsc Xfer(QC): 4 Gait Training Distance: 200' Walk 10 feet (QC): 4 Walk 50 ft with 2 Turns(QC): 4 Walk 150 ft (QC): 4 Gait Assistive Device: FWW mild LOB with self correct Assessment Patient moved right UE to wipe her nose and her IV came out. Nursing notified. Patient returned to room with needs met. PT Bedspread Cutter Goals Usp Goals PT Usp Goals Time Frame: July 14, 2021 Roll Left & Right (QC): 6 Sit to Lying (QC): 6 Lying-Sitting on Side/Bed(QC): 6 Sit to Stand (QC): 6 Chair/Oyo-zr-Ryhdx Xfer(QC): 6 Toilet Transfer (QC): 6 Walk 10 feet (QC): 6 Walk 50ft with 2 Turns (QC): 6 Walk 150 ft (QC): 6 PT Plan Treatment/Plan Treatment Plan: Continue Plan of Care Treatment Plan: Bed Mobility, Education, Functional Activity Daniela, Functional Strength, Gait, Safety, Therapeutic Exercise, Transfers Treatment Duration: July 14, 2021 Frequency: 6 times per week Estimated Hrs Per Day: .25 hour per day Patient and/or Family Agrees t: Yes Time/GCodes Time In: 930 Time Out: 940 Total Billed Treatment Time: 10 Total Billed Treatment 1 visit FA 10 min NAVEEN ORTIZ PT July 03, 2021 10:09
[2021-07-03] MEDS ORDERED: NITR-65 PO (10:20)
--- NOTE | 2021-07-03 10:21 | Discharge Summary ---
Discharge Summary Hospital Course Was the Problem List Reviewed?: Yes Problems/Dx: (1) Orthostatic hypotension Status: Acute (2) UTI (urinary tract infection) Hospital Course Date of Admission: July 01, 2021 at 21:10 Admission Diagnosis : [facility] Date of [facility]charge: 07/03/21 Discharge Diagnosis: Orthostatic hypotension, hypokalemia, hyponatremia, UTI without evidence of sepsis, lactic acidosis chronic issue Hospital Course: Pt had an uneventful hospital course for 3 days. She was admitted for orthostatic hypotension with UTI but no evidence of sepsis. Elevated lactic acid is a chronic issue with her. It is likely due to her continued decline and we ight loss. Did not indicate any evidence of sepsis. She completed IV antibiotics of Cefepime that was transitioned to Macrobid for 5 days of 100 mg BID. She will have close follow up with Dr. Espana, of which I updated regarding her terminal carman poor prognosis. Labs and Pending Lab Test: Laboratory Tests 07/02/21 11:08: Glucometer 223H 07/02/21 15:27: Glucometer 267H 07/02/21 20:29: Glucometer 117H 07/03/21 05:13: White Blood Count 2.2L, Red Blood Count 2.98L, Hemoglobin 7.8L, Hematocrit 24L, Mean Corpuscular Volume 82, Mean Corpuscular Hemoglobin 26, Mean Corpuscular Hemoglobin Concent 32, Red Cell Distribution Width 19.6H, Platelet Count 179, M shira Platelet Volume 10.7, Immature Granulocyte % (Auto) 1, Neutrophils (%) (Auto) 55, Lymphocytes (%) (Auto) 24, Monocytes (%) (Auto) 13H, Eosinophils (%) (Auto) 7, Basophils (%) (Auto) 1, Neutrophils # (Auto) 1.2L, Lymphocytes # (Auto) 0.5L, Monocytes # (Auto) 0.3, Eosinophils # (Auto) 0.2, Basophils # (Auto) 0.0, Immature Granulocyte # (Auto) 0.0, Sodium Level 133L, Potassium Level 4.3, Chloride Level 104, Carbon Dioxide Level 20L, Anion Gap 9, Blood Urea Nitrogen 10, Creatinine 0.71, Estimat Glomerular Filtration Rate 99, BUN/ Creatinine Ratio 14, Glucose Level 93, Calcium Level 7.3L, Corrected Calcium 8.9, Total Bilirubin 0.4, Aspartate Amino Transf (AST/SGOT) 27, Alanine Aminotransferase (ALT/SGPT) 8, Alkaline Phosphatase 121, Total Protein 5.5L, Albumin 2.0L 07/03/21 05:37: Glucometer 90 Microbiology 07/01/21 Blood Culture - Preliminary, Resulted No growth Home Meds Active Macrobid 100 mg Capsule (Nitrofurantoin Monohyd/M-Cryst) 100 Mg Capsule 1 Tab PO BID Tresiba Flextouch U-200 (Insulin Degludec) 200 Unit/1 Ml Insuln.pen 10 Units SC HS 7 Days contact PCP next week for modifications Reported Folic Acid 1 Mg Tablet 5 Mg PO DAILY TAKES 5 (1MG) TABS Celecoxib 200 Mg Capsule 200 Mg PO DAILY Stool Softener (Docusate Sodium) 100 Mg Capsule 100-200 Mg PO DAILY PRN Excedrin Migraine Caplet (Aspirin/Acetaminophen/Caffeine) 1 Each Tablet 2 Each PO Q6-8HR PRN Synthroid (Levothyroxine Sodium) 100 Mcg Tablet 100 Mcg PO DAILY Omeprazole 20 Mg Capsule.dr 20 Mg PO DAILY Assessment/Pt Instructions PCP this week Discharge Planning: <30 minutes discharge planning Discharge Instructions Discharge Diet: ADA Diet Discharge Physical Examination Vital Signs Vital Signs Date Time Temp Pulse Resp B/P (MAP) Pulse Ox O2 Delivery O2 Flow Rate FiO2 07/03/21 08:00 36.9 103 18 149/80 (103) 99 Room Air 07/03/21 07:37 0.00 General Appearance: No Apparent Distress, WD/WN, Chronically ill, Thin Allergies: Coded Allergies: amoxicillin (Verified Allergy, Unknown, Rash, 02/13/21) Discharge Summary Date of Admission July 01, 2021 at 21:10 Date of Discharge Discharge Date: July 03, 2021 Admission Diagnosis Assessment: Orthostatic hypotension UTI without evidence of sepsis Recurrent UTI Rheumatoid arthritis Anemia Neutropenia Lactic acidosis due to hypovolemia Hyperglycemia History of diabetes Plan: IV fluid Cefepime Await urine culture Monitor sugar Discharge Diagnosis (1) Orthostatic hypotension Status: Acute (2) UTI (urinary tract infection) HAYDEN CARDONA DO July 03, 2021 10:21
[2021-07-03 11:00] VITALS: BP 138/74
== END 2021-07-03 12:30 | disposition home or self-care (01) ==
LOC: EDUNIT# 17:14 → ER FS 17:15 → 4TH 21:10
PROVIDERS: ADMIT Internal Medicine; ATTEND Internal Medicine
DX: I95.1 Orthostatic hypotension (principal); E86.0 Dehydration; E11.65 Type 2 diabetes mellitus with hyperglycemia; Z79.4 Long term (current) use of insulin; N39.0 Urinary tract infection, site not specified; M06.9 Rheumatoid arthritis, unspecified; E87.1 Hypo-osmolality and hyponatremia; E87.2 Acidosis; E86.1 Hypovolemia; R21 Rash and other nonspecific skin eruption; D64.9 Anemia, unspecified; D70.9 Neutropenia, unspecified; Z88.6 Allergy status to analgesic agent; Z79.82 Long term (current) use of aspirin
CPT/HCPCS: 36415; 80053 ×3; 81000; 82947 ×3; 83605 ×2; 84145; 84484; 85025 ×3; 86141; 87040; 87088; 94760 ×2; 96360; 96361; 96372; 97161; 97162; 97530; 99284; G0378

== ENCOUNTER → 2021-07-13 | Outpatient (CLI) | payer OTHER ==
[~2021-07-13] MED LIST changes: +NITR-65 PO
[2021-07-13 10:15] LABS: BASOPHILS % (AUTO) 0 % (0-10); EOSINOPHILS # (AUTO) 0.1 10^3/uL (0.0-0.3); EOSINOPHILS % (AUTO) 4 % (0-10); HEMATOCRIT 28 % (35-52); HEMOGLOBIN 8.9 g/dL (11.5-16.0); LYMPHOCYTES # (AUTO) 0.3 10^3/uL (1.0-4.0); LYMPHOCYTES % (AUTO) 8 % (12-44); MEAN CORPUSCULAR HEMOGLOBIN 27 pg (25-34); MEAN CORPUSCULAR HGB CONC 32 g/dL (32-36); MEAN CORPUSCULAR VOLUME 83 fL (80-99); MEAN PLATELET VOLUME 9.6 fL (9.0-12.2); MONOCYTES # (AUTO) 0.3 10^3/uL (0.0-1.0); MONOCYTES % (AUTO) 8 % (0-12); NEUTROPHILS # (AUTO) 2.7 10^3/uL (1.8-7.8); NEUTROPHILS % (AUTO) 79 % (42-75); PLATELET COUNT 239 10^3/uL (130-400); WHITE BLOOD COUNT 3.5 10^3/uL (4.3-11.0)
[2021-07-13 10:34] LABS: ALBUMIN 2.6 GM/DL (3.2-4.5); BILIRUBIN,TOTAL 0.5 MG/DL (0.1-1.0); CALCIUM 7.9 MG/DL (8.5-10.1); CREATININE SERUM 0.68 MG/DL (0.60-1.30); POTASSIUM 4.2 MMOL/L (3.6-5.0); TOTAL PROTEIN 6.9 GM/DL (6.4-8.2)
[2021-07-13 10:45] LABS: BAND NEUTROPHILS 9 %; BASOPHILS % (MANUAL) 0 %; EOSINOPHILS % (MANUAL) 3 %; HYPOCHROMASIA 2+; LYMPHOCYTES % (MANUAL) 10 %; MICROCYTOSIS 1+; MONOCYTES % (MANUAL) 5 %; NEUTROPHILS % (MANUAL) 73 %; PLATELET ESTIMATE NORMAL; POIKILOCYTOSIS 1+
[2021-07-13 10:46] LABS: ELLIPT/OVALOCYTES SLIGHT
== END ==
LOC: LAB FS 09:44
PROVIDERS: ATTEND Nurse Practitioner Family
DX: Z00.00 Encounter for general adult medical examination without abnormal findings (principal); E11.9 Type 2 diabetes mellitus without complications
CPT/HCPCS: 36415; 80053; 85007; 85027